=== PATIENT | male | born 1965 ===

== ENCOUNTER 2020-08-31 12:30 | Emergency (ER) | payer MEDICAID ==
--- NOTE | 2020-08-31 12:58 | Emergency Department Report ---
Blank Doc - Documentation Documentation: 55-year-old male that presents with SOB and increased abd distention. This initial assessment/diagnostic orders/clinical plan/treatment(s) is/are subject to change based on patient's health status, clinical progression and re- assessment by fellow clinical providers in the ED. Further treatment and workup at subsequent clinical providers discretion. Patient/guardians urged not to elope from the ED as their condition may be serious if not clinically assessed and managed. Initial orders include: 1- Patient sent to MAIN ED for further evaluation and treatment 2- labs 3- EKG
[2020-08-31 13:00] VITALS: BP 101/79
[2020-08-31 13:43] LABS: Basophils # (Auto) 0.1 K/mm3 (0.0-0.1); Basophils % (Auto) 0.4 % (0.0-1.8); Eosinophils % (Auto) 0.3 % (0.0-4.3); Hematocrit 28.8 % (35.5-45.6); Hemoglobin 9.5 gm/dl (11.8-15.2); Lymphocytes # (Auto) 1.9 K/mm3 (1.2-5.4); Lymphocytes % (Auto) 13.3 % (13.4-35.0); Mean Corpuscular HGB Conc 33 % (32-34); Mean Corpuscular Volume 98 fl (84-94); Monocytes # (Auto) 1.9 K/mm3 (0.0-0.8); Monocytes % (Auto) 13.5 % (0.0-7.3); Platelet Count 186 K/mm3 (140-440); Red Blood Count 2.95 M/mm3 (3.65-5.03); Red Cell Distribution Width 13.8 % (13.2-15.2)
[2020-08-31 13:51] LABS: INR 1.17 (0.87-1.13)
[2020-08-31 13:52] LABS: Partial Thromboplastin Time 31.7 Sec. (24.2-36.6)
[2020-08-31 14:18] LABS: Albumin 2.2 g/dL (3.9-5); Calcium 7.7 mg/dL (8.4-10.2)
[2020-08-31 14:30] LABS: Chol/HDL Ratio 2.96 %
--- NOTE | 2020-08-31 14:40 | XRay Report ---
CHEST 1 VIEW 08/31/2020 1:33 PM INDICATION / CLINICAL INFORMATION: Chest Pain. COMPARISON: None available. FINDINGS: SUPPORT DEVICES: A right internal jugular vein PermCath terminates over the right atrium. HEART / MEDIASTINUM: No significant abnormality. LUNGS / PLEURA: Clear lungs with reduced volumes. No significant pleural effusion. No pneumothorax. ADDITIONAL FINDINGS: No significant additional findings. IMPRESSION: 1. No acute abnormality of the chest. Signer Name: Curry Ascencio MD Signed: 08/31/2020 2:35 PM Workstation Name: [id number]
--- NOTE | 2020-08-31 15:39 | Emergency Department Report ---
ED Shortness of Breath HPI - General Chief Complaint: Medical Clearance Stated Complaint: RENAL FAILURE Time Seen by Provider: 08/31/20 12:56 Source: patient Mode of arrival: Ambulatory Limitations: No Limitations - History of Present Illness Initial Comments: 55-year-old male, history of ESRD, liver cirrhosis, presents to ED with shortness of breath. Patient states he was last dialyzed 2 days ago. He states after being dialyzed, he has had progressive distention of his abdomen. He reports shortness of breath due to his abdominal distention. Patient states he was seen by his PCP earlier today and advised to come to the ER. Patient states he needs paracentesis. States it was last performed approximately 1 week ago at [facility]. Complaint: shortness of breath -: days(s) (2) Severity: moderate Consistency: constant Improves With: nothing Worsens With: nothing Known History Of: other (ESRD) Treatments Prior to Arrival: none - Related Data Home Oxygen Therapy: No Home Medications Medication Instructions Recorded Confirmed Last Taken No Known Home Medications [No 08/08/20 08/08/20 Unknown Reported Home Medications] Allergies Allergy/AdvReac Type Severity Reaction Status Date / Time No Known Allergies Allergy Verified 05/01/16 10:24 ED Review of Systems ROS: Stated complaint: RENAL FAILURE Other details as noted in HPI Comment: All other systems reviewed and negative Constitutional: denies: chills, fever Respiratory: shortness of breath. denies: cough Gastrointestinal: other (Reports abdominal distention). denies: vomiting ED Past Medical Hx - Past Medical History Previous Medical History?: Yes Hx Hypertension: Yes Hx Liver Disease: Yes (cirrhosis) Hx Renal Disease: Yes - Surgical History Additional Surgical History: hernia repair - Social History Smoking Status: Current Every Day Smoker Substance Use Type: None - Medications Home Medications: Home Medications Medication Instructions Recorded Confirmed Last Taken Type No Known Home Medications [No 08/08/20 08/08/20 Unknown History Reported Home Medications] ED Physical Exam - General Limitations: No Limitations General appearance: alert, in no apparent distress - Head Head exam: Present: atraumatic, normocephalic - Eye Eye exam: Present: normal appearance, EOMI - ENT ENT exam: Present: mucous membranes moist - Neck Neck exam: Present: normal inspection - Respiratory Respiratory exam: Present: normal lung sounds bilaterally. Absent: respiratory distress - Cardiovascular Cardiovascular Exam: Present: normal rhythm, tachycardia - GI/Abdominal GI/Abdominal exam: Present: distended (Severely). Absent: tenderness - Extremities Exam Extremities exam: Present: normal inspection - Neurological Exam Neurological exam: Present: alert, oriented X3 - Psychiatric Psychiatric exam: Present: normal affect, normal mood - Skin Skin exam: Present: warm, dry, intact, normal color ED Course Vital Signs 08/31/20 12:56 Temperature 98 F Pulse Rate 105 H Respiratory 16 Rate Blood Pressure 101/79 [Right] O2 Sat by Pulse 100 Oximetry ED Medical Decision Making - Lab Data Result diagrams: 08/31/20 13:18 08/31/20 13:18 - Radiology Data Radiology results: report reviewed, image reviewed - Medical Decision Making Attempted to reach radiologist for paracentesis, however he has left for the day . Patient will be unable to get paracentesis today. He is in no respiratory distress. O2 sats are normal. He also does not meet criteria for emergent dialysis, as his potassium and chest x-ray are both normal. Patient is scheduled for dialysis in the morning. He states he normally gets paracentesis at [facility], who performs paracentesis on Monday, Monday, . Patient has been advised to follow-up in the morning for his usual dialysis. Afterward he can return here or go to [facility] for paracentesis. - Differential Diagnosis Hyperkalemia, pulmonary edema, ascites Critical care attestation.: If time is entered above; I have spent that time in minutes in the direct care of this critically ill patient, excluding procedure time. ED Disposition Clinical Impression: Abdominal ascites Disposition: DC-01 TO HOME OR SELFCARE Is pt being admited?: No Condition: Stable Instructions: Ascites (ED) Referrals: PRIMARY CARE [Primary Care Provider] - 09/01/20 Time of Disposition: 16:08
== END 2020-08-31 15:45 | disposition home or self-care (01) ==
LOC: ED 12:30
DX: R18.8 Other ascites (principal); I12.0 Hypertensive chronic kidney disease with stage 5 chronic kidney disease or end stage renal disease; N18.6 End stage renal disease; F17.200 Nicotine dependence, unspecified, uncomplicated; Z98.890 Other specified postprocedural states
CPT/HCPCS: 36415; 71045; 80053; 80061; 84484; 85025; 85610; 85730

== ENCOUNTER 2020-09-14 15:21 | Inpatient (IN) | payer MEDICAID ==
[2020-09-14] MEDS ORDERED: SODIUM CHLORIDE 0.9% 500 ML 500 ML IV ONE (17:09)
[2020-09-14 17:26] LABS: Basophils # (Auto) 0.5 K/mm3 (0.0-0.1); Basophils % (Auto) 2.6 % (0.0-1.8); Eosinophils % (Auto) 0.2 % (0.0-4.3); Hematocrit 26.3 % (35.5-45.6); Hemoglobin 8.4 gm/dl (11.8-15.2); Lymphocytes # (Auto) 2.2 K/mm3 (1.2-5.4); Lymphocytes % (Auto) 11.9 % (13.4-35.0); Mean Corpuscular HGB Conc 32 % (32-34); Mean Corpuscular Volume 101 fl (84-94); Monocytes # (Auto) 2.2 K/mm3 (0.0-0.8); Monocytes % (Auto) 11.6 % (0.0-7.3); Platelet Count 100 K/mm3 (140-440); Red Cell Distribution Width 15.2 % (13.2-15.2)
[2020-09-14 17:38] LABS: INR 1.55 (0.87-1.13)
[2020-09-14 17:39] LABS: Partial Thromboplastin Time 36.9 Sec. (24.2-36.6)
[2020-09-14] MEDS ORDERED: SODIUM CHLORIDE 0.9% 1000 ML IV SOLN IV ONE (17:42)
[2020-09-14] MEDS ORDERED: PIPERACIL/TAZOBACTA 4.5/NS 100 4.5 GM/100 ML VIAL IV ONE (17:48)
[2020-09-14] MEDS ORDERED: VANCOMYCIN 1,750 MG in SODIUM CHLORIDE 0.9% 500 ML 500 ML IV ONE (17:48)
--- NOTE | 2020-09-14 18:34 | XRay Report ---
XR chest 1V ap INDICATION / CLINICAL INFORMATION: leuckocytosis. COMPARISON: 08/31/2020 FINDINGS: Right IJ central venous catheter is stable. The lung volumes are markedly diminished with perihilar a nd bibasilar opacities, likely reflecting atelectasis. There is no focal airspace consolidation. No p leural effusion or pneumothorax. IMPRESSION: 1. Stable chest. Lung volumes without acute cardiopulmonary disease. Signer Name: Romel Cabrera MD Signed: 09/14/2020 6:29 PM Workstation Name: [id number]
[2020-09-14 19:23] LABS: Alanine Aminotransferase 20 units/L (7-56); Albumin 1.6 g/dL (3.9-5); BUN/Creatinine Ratio 6; Blood Urea Nitrogen 35 mg/dL (9-20); Calcium 7.1 mg/dL (8.4-10.2)
--- NOTE | 2020-09-14 19:32 | Emergency Department Report ---
ED General Adult HPI - General Chief complaint: Medical Clearance Stated complaint: HYPOTENSION Time Seen by Provider: 09/14/20 16:30 Source: EMS, old records reviewed Mode of arrival: Stretcher Limitations: No Limitations - History of Present Illness Initial comments: 55-year-old male with a past medical history of alcohol induced liver cirrhosis, and "violent outbursts" as per medical presents to the hospital from his primary care doctor's office with low blood pressure. Patient was initially belligerent and uncooperative with interview because he wanted yet another blanket because he was cold. I then returned to interview patient he was more cooperative. He states for the last 3 days he has had generalized body aches. He went to his primary care doctor for visit and was noted to have low blood pressure and was subsequently sent to the ER. He denies fever, cough cough or worsening abdominal pain. His chronic intermittent abdominal distention secondary to ascites requiring paracentesis. Last paracentesis was 1 week ago at [facility]. Patient states this is his second paracentesis in a 2-week. Patient states he recently missed 2 sessions of his Monday, , and Monday dialysis and had a "make-up session" yesterday. He was recently started on dialysis and has a right chest wall dialysis catheter. Patient's appraisal coordinator is Dr. Rincon and his GI doctor is Dr. Alvarez. He denies current alcohol abuse. Severity scale (0 -10): 10 - Related Data Home Medications Medication Instructions Recorded Confirmed Last Taken Cholecalciferol (Vitamin D3) 5,000 unit PO DAILY 09/14/20 09/14/20 Unknown [Vitamin D3] Folic Acid [Folvite] 1 mg PO QDAY 09/14/20 09/14/20 Unknown Furosemide [Lasix TAB] 40 mg PO QDAY 09/14/20 09/14/20 Unknown Lactulose [Kristalose] 20 gm PO QDAY 09/14/20 09/14/20 Unknown Midodrine [Proamatine] 5 mg PO TID 09/14/20 09/14/20 Unknown Pantoprazole [Protonix] 40 mg PO QDAY 09/14/20 09/14/20 Unknown Rifaximin [Xifaxan] 550 mg PO BID 09/14/20 09/14/20 Unknown Spironolactone [Aldactone] 100 mg PO BID 09/14/20 09/14/20 Unknown Thiamine [Vitamin B-1] 100 mg PO QDAY 09/14/20 09/14/20 Unknown megestroL [Megace] 20 mg PO QID 09/14/20 09/14/20 Unknown Allergies Allergy/AdvReac Type Severity Reaction Status Date / Time No Known Allergies Allergy Verified 05/01/16 10:24 ED Review of Systems ROS: Stated complaint: HYPOTENSION Other details as noted in HPI Comment: All other systems reviewed and negative ED Past Medical Hx - Past Medical History Previous Medical History?: Yes Hx Hypertension: Yes Hx Liver Disease: Yes (cirrhosis, ascites) Hx Renal Disease: Yes Additional medical history: Recent hemodialysis Tue, Th, Sat - Surgical History Additional Surgical History: hernia repair - Social History Smoking Status: Unknown if ever smoked - Medications Home Medications: Home Medications Medication Instructions Recorded Confirmed Last Taken Type Cholecalciferol (Vitamin D3) 5,000 unit PO DAILY 09/14/20 09/14/20 Unknown History [Vitamin D3] Folic Acid [Folvite] 1 mg PO QDAY 09/14/20 09/14/20 Unknown History Furosemide [Lasix TAB] 40 mg PO QDAY 09/14/20 09/14/20 Unknown History Lactulose [Kristalose] 20 gm PO QDAY 09/14/20 09/14/20 Unknown History Midodrine [Proamatine] 5 mg PO TID 09/14/20 09/14/20 Unknown History Pantoprazole [Protonix] 40 mg PO QDAY 09/14/20 09/14/20 Unknown History Rifaximin [Xifaxan] 550 mg PO BID 09/14/20 09/14/20 Unknown History Spironolactone [Aldactone] 100 mg PO BID 09/14/20 09/14/20 Unknown History Thiamine [Vitamin B-1] 100 mg PO QDAY 09/14/20 09/14/20 Unknown History megestroL [Megace] 20 mg PO QID 09/14/20 09/14/20 Unknown History ED Physical Exam - General Limitations: No Limitations - Other Other exam information: General: No acute distress Head: Atraumatic Eyes: normal appearance ENT: Moist mucous membranes Neck: Normal appearance, no midline tenderness Chest: Clear to auscultation bilaterally CV: Regular rate and rhythm Abdomen: Soft, normal bowel sounds, abdominal distended with presumed ascites but nontender. No rebound or guarding Back: Normal inspection Extremity: Normal inspection, full range of motion Neuro: Alert O x 3, no facial asymmetry, speech clear, no gross motor sensory deficit Psych: Intermittently belligerent Skin: No rash ED Course Vital Signs 09/14/20 09/14/20 09/14/20 16:35 16:36 18:32 Temperature 98.3 F Pulse Rate 79 80 Respiratory 18 18 16 Rate Blood Pressure 84/54 93/60 [Left] O2 Sat by Pulse 100 100 98 Oximetry - Consultations Consultation #1: 09/14/20 19: 30 Case has been discussed with both Dr. Funez with GI as well as Dr. Johnston nephrology and they will consult during admission ED Medical Decision Making - Lab Data Result diagrams: 09/14/20 16:41 09/14/20 16:41 Lab Results 09/14/20 09/14/20 09/14/20 Range/Units 16:41 16:41 16:55 WBC 18.8 H (4.5-11.0) K/mm3 RBC 2.60 L (3.65-5.03) M/mm3 Hgb 8.4 L (11.8-15.2) gm/dl Hct 26.3 L (35.5-45.6) % MCV 101 H (84-94) fl MCH 32 (28-32) pg MCHC 32 (32-34) % RDW 15.2 (13.2-15.2) % Plt Count 100 L (140-440) K/mm3 Lymph % (Auto) 11.9 L (13.4-35.0) % [place] % (Auto) 11.6 H (0.0-7.3) % Eos % (Auto) 0.2 (0.0-4.3) % Baso % (Auto) 2.6 H (0.0-1.8) % Lymph # (Auto) 2.2 (1.2-5.4) K/mm3 [place] # (Auto) 2.2 H (0.0-0.8) K/mm3 Eos # (Auto) 0.0 (0.0-0.4) K/mm3 Baso # (Auto) 0.5 H (0.0-0.1) K/mm3 Seg Neutrophils % 73.7 H (40.0-70.0) % Seg Neutrophils # 13.9 H (1.8-7.7) K/mm3 PT (12.2-14.9) Sec. INR (0.87-1.13) APTT (24.2-36.6) Sec. Sodium 128 L (137-145) mmol/L Potassium 4.8 (3.6-5.0) mmol/L Chloride 88.6 L (98-107) mmol/L Carbon Dioxide 25 (22-30) mmol/L Anion Gap 19 mmol/L BUN 35 H (9-20) mg/dL Creatinine 5.5 H (0.8-1.3) mg/dL Estimated GFR 11 ml/min BUN/Creatinine Ratio 6 % Glucose 103 H (75-100) mg/dL Lactic Acid (0.7-2.0) mmol/L Calcium 7.1 L (8.4-10.2) mg/dL Magnesium 2.40 H (1.7-2.3) mg/dL Total Bilirubin 1.80 H (0.1-1.2) mg/dL AST 48 H (5-40) units/L ALT 20 (7-56) units/L Alkaline Phosphatase 144 H (35-129) units/L Total Protein 4.0 L (6.3-8.2) g/dL Albumin 1.6 L (3.9-5) g/dL Albumin/Globulin Ratio 0.7 % Plasma/Serum Alcohol (0-0.07) % 09/14/20 09/14/20 09/14/20 Range/Units 16:55 16:55 18:15 WBC (4.5-11.0) K/mm3 RBC (3.65-5.03) M/mm3 Hgb (11.8-15.2) gm/dl Hct (35.5-45.6) % MCV (84-94) fl MCH (28-32) pg MCHC (32-34) % RDW (13.2-15.2) % Plt Count (140-440) K/mm3 Lymph % (Auto) (13.4-35.0) % [place] % (Auto) (0.0-7.3) % Eos % (Auto) (0.0-4.3) % Baso % (Auto) (0.0-1.8) % Lymph # (Auto) (1.2-5.4) K/mm3 [place] # (Auto) (0.0-0.8) K/mm3 Eos # (Auto) (0.0-0.4) K/mm3 Baso # (Auto) (0.0-0.1) K/mm3 Seg Neutrophils % (40.0-70.0) % Seg Neutrophils # (1.8-7.7) K/mm3 PT 18.8 H (12.2-14.9) Sec. INR 1.55 H (0.87-1.13) APTT 36.9 H (24.2-36.6) Sec. Sodium (137-145) mmol/L Potassium (3.6-5.0) mmol/L Chloride (98-107) mmol/L Carbon Dioxide (22-30) mmol/L Anion Gap mmol/L BUN (9-20) mg/dL Creatinine (0.8-1.3) mg/dL Estimated GFR ml/min BUN/Creatinine Ratio % Glucose (75-100) mg/dL Lactic Acid 2.70 H* (0.7-2.0) mmol/L Calcium (8.4-10.2) mg/dL Magnesium (1.7-2.3) mg/dL Total Bilirubin (0.1-1.2) mg/dL AST (5-40) units/L ALT (7-56) units/L Alkaline Phosphatase (35-129) units/L Total Protein (6.3-8.2) g/dL Albumin (3.9-5) g/dL Albumin/Globulin Ratio % Plasma/Serum Alcohol < 0.01 (0-0.07) % - Radiology Data Radiology results: report reviewed XR chest 1V ap INDICATION / CLINICAL INFORMATION: leuckocytosis. COMPARISON: 08/31/2020 FINDINGS: Right IJ central venous catheter is stable. The lung volumes are markedly diminished with perihilar and bibasilar opacities, likely reflecting atelectasis. There is no focal airspace consolidation. No pleural effusion or pneumothorax. IMPRESSION: 1. Stable chest. Lung volumes without acute cardiopulmonary disease. - Medical Decision Making 55-year-old male with alcohol induced ascites presents to the hospital leukocytosis and borderline low blood pressure. Patient's map upon repeat blood pressure checks remained above 65. Patient treated via sepsis protocol with 30 mL/kg bolus of normal saline and was empirically treated with vancomycin and Zosyn. Source of infection unknown at this time. Blood cultures pending. Case was discussed with GI doctor premium cancellation clerk regarding due to chronic liver failure/ascites and case was discussed with Dr. Johnston appraisal coordinator for management of dialysis. Hospitalist informed for admission Critical Care Time: No Critical care attestation.: If time is entered above; I have spent that time in minutes in the direct care of this critically ill patient, excluding procedure time. ED Disposition Clinical Impression: Sepsis, Cirrhosis of liver with ascites, ESRD (end stage renal disease) on dialysis Disposition: OP ADMIT IP TO THIS HOSP Is pt being admited?: Yes Condition: Stable Time of Disposition: 20:30 (Dr. Catalan/hospitalist)
--- NOTE | 2020-09-14 20:26 | History and Physical Report ---
History of Present Illness Chief complaint: I dont feel well at all, and my doctor sent me here History of present illness: 55 YO Male with Cirrhosis, ESRD on HD(T,R,Sa), ETOH Dependence, Nicotine Dependence, HTN presents to ED for evaluation. Patient states that he has been "feeling sick" over the past 3 days. Patient knowledges generalized body aches, fatigue, subjective fever. Patient was seen and evaluated by his primary care physician today and was found to be hypotensive. Patient was instructed to seek further care. EMS was notified and upon arrival the patient was found to be in distress and subsequently transported to [facility] for further care and evaluation of the aforementioned symptoms. Patient seen and evaluated in the emergency department. All lab and imaging studies reviewed. Patient found to have sepsis with a systolic blood pressure in the 80swithout taking antihypertensive medication, end-stage renal disease, hyponatremia. Patient initiated on sepsis protocol and admitted to [facility]. Patient knowledges subjective fever but denies chills, chest pain, palpitation, productive cough, skin rash, recent ill contacts, or known exposure to COVID-19. Prior admission on 08/07/2020 reviewed. All medication listed at time of admission has been reconciled. Nephrology team consulted in ED. Past History Past Medical History: ESRD, hypertension, other (See HPI) Past Surgical History: Other (Dialysis access) Social history: smoking, alcohol abuse Medications and Allergies Allergies Allergy/AdvReac Type Severity Reaction Status Date / Time No Known Allergies Allergy Verified 05/01/16 10:24 Home Medications Medication Instructions Recorded Confirmed Last Taken Type Cholecalciferol (Vitamin D3) 5,000 unit PO DAILY 09/14/20 09/14/20 Unknown History [Vitamin D3] Folic Acid [Folvite] 1 mg PO QDAY 09/14/20 09/14/20 Unknown History Furosemide [Lasix TAB] 40 mg PO QDAY 09/14/20 09/14/20 Unknown History Lactulose [Kristalose] 20 gm PO QDAY 09/14/20 09/14/20 Unknown History Midodrine [Proamatine] 5 mg PO TID 09/14/20 09/14/20 Unknown History Pantoprazole [Protonix] 40 mg PO QDAY 09/14/20 09/14/20 Unknown History Rifaximin [Xifaxan] 550 mg PO BID 09/14/20 09/14/20 Unknown History Spironolactone [Aldactone] 100 mg PO BID 09/14/20 09/14/20 Unknown History Thiamine [Vitamin B-1] 100 mg PO QDAY 09/14/20 09/14/20 Unknown History megestroL [Megace] 20 mg PO QID 09/14/20 09/14/20 Unknown History Review of Systems Constitutional: fever, chills, fatigue, weakness Ears, nose, mouth and throat: no ear pain, no ear discharge, no tinnitis, no decreased hearing Cardiovascular: no chest pain, no orthopnea, no palpitations, no rapid/irregular heart beat, no edema, no syncope Respiratory: no cough, no excessive sputum, no hemoptysis Gastrointestinal: no abdominal pain, no nausea, no vomiting, no diarrhea Genitourinary Male: no hematuria, no flank pain, no discharge, no urinary frequency, no urinary hesitancy Rectal: no pain, no incontinence, no bleeding Musculoskeletal: no neck stiffness, no neck pain, no shooting arm pain, no arm numbness/tingling, no low back pain Integumentary: no rash, no pruritis, no redness, no sores, no wounds Neurological: no head injury, no transient paralysis, no paralysis, no parathesi as, no numbness, no tingling Psychiatric: no anxiety, no memory loss, no sleep disturbances, no insomnia Endocrine: no cold intolerance, no heat intolerance, no polyphagia, no polydipsia, no nocturia Hematologic/Lymphatic: no easy bruising, no easy bleeding Allergic/Immunologic: no urticaria, no allergic rhinitis Exam - Constitutional Vitals: Temp Pulse Resp BP Pulse Ox 98.3 F 80 16 93/60 98 09/14/20 16:35 09/14/20 18:32 09/14/20 18:32 09/14/20 18:32 09/14/20 18:32 General appearance: Present: mild distress - EENT Eyes: Present: PERRL ENT: hearing intact, clear oral mucosa - Neck Neck: Present: supple, normal ROM - Respiratory Respiratory effort: normal Respiratory: bilateral: CTA - Cardiovascular Rhythm: other (Tachycardia) Heart Sounds: Present: S1 & S2. Absent: rub, click - Extremities Extremities: pulses symmetrical, No edema Peripheral Pulses: abnormal (Capillary refill greater than 3.5 seconds) - Abdominal General gastrointestinal: Present: soft, non-tender, non-distended, normal bowel sounds Male genitourinary: Present: normal - Integumentary Integumentary: Present: clear, warm, dry - Musculoskeletal Musculoskeletal: gait normal, strength equal bilaterally - Psychiatric Psychiatric: appropriate mood/affect, intact judgment & insight - Neurologic Neurologic: CNII-XII intact, moves all extremities Results - Labs CBC & Chem 7: 09/14/20 16:41 09/14/20 16:41 Labs: Abnormal lab results 09/14/20 09/14/20 09/14/20 Range/Units 16:41 16:41 16:55 WBC 18.8 H (4.5-11.0) K/mm3 RBC 2.60 L (3.65-5.03) M/mm3 Hgb 8.4 L (11.8-15.2) gm/dl Hct 26.3 L (35.5-45.6) % MCV 101 H (84-94) fl Plt Count 100 L (140-440) K/mm3 Lymph % (Auto) 11.9 L (13.4-35.0) % [place] % (Auto) 11.6 H (0.0-7.3) % Baso % (Auto) 2.6 H (0.0-1.8) % [place] # (Auto) 2.2 H (0.0-0.8) K/mm3 Baso # (Auto) 0.5 H (0.0-0.1) K/mm3 Seg Neutrophils % 73.7 H (40.0-70.0) % Seg Neutrophils # 13.9 H (1.8-7.7) K/mm3 PT (12.2-14.9) Sec. INR (0.87-1.13) APTT (24.2-36.6) Sec. Sodium 128 L (137-145) mmol/L Chloride 88.6 L (98-107) mmol/L BUN 35 H (9-20) mg/dL Creatinine 5.5 H (0.8-1.3) mg/dL Glucose 103 H (75-100) mg/dL Lactic Acid (0.7-2.0) mmol/L Calcium 7.1 L (8.4-10.2) mg/dL Magnesium 2.40 H (1.7-2.3) mg/dL Total Bilirubin 1.80 H (0.1-1.2) mg/dL AST 48 H (5-40) units/L Alkaline Phosphatase 144 H (35-129) units/L Total Protein 4.0 L (6.3-8.2) g/dL Albumin 1.6 L (3.9-5) g/dL 09/14/20 09/14/20 Range/Units 16:55 18:15 WBC (4.5-11.0) K/mm3 RBC (3.65-5.03) M/mm3 Hgb (11.8-15.2) gm/dl Hct (35.5-45.6) % MCV (84-94) fl Plt Count (140-440) K/mm3 Lymph % (Auto) (13.4-35.0) % [place] % (Auto) (0.0-7.3) % Baso % (Auto) (0.0-1.8) % [place] # (Auto) (0.0-0.8) K/mm3 Baso # (Auto) (0.0-0.1) K/mm3 Seg Neutrophils % (40.0-70.0) % Seg Neutrophils # (1.8-7.7) K/mm3 PT 18.8 H (12.2-14.9) Sec. INR 1.55 H (0.87-1.13) APTT 36.9 H (24.2-36.6) Sec. Sodium (137-145) mmol/L Chloride (98-107) mmol/L BUN (9-20) mg/dL Creatinine (0.8-1.3) mg/dL Glucose (75-100) mg/dL Lactic Acid 2.70 H* (0.7-2.0) mmol/L Calcium (8.4-10.2) mg/dL Magnesium (1.7-2.3) mg/dL Total Bilirubin (0.1-1.2) mg/dL AST (5-40) units/L Alkaline Phosphatase (35-129) units/L Total Protein (6.3-8.2) g/dL Albumin (3.9-5) g/dL Assessment and Plan - Patient Problems (1) Sepsis Status: Acute Plan to address problem: Sepsis protocol: CBC, CMP, chest x-ray, urinalysis, IV antibiotic therapy, serial lactic acid level, blood culture, maintain mean arterial blood pressure greater than or equal to 65. (2) End stage renal disease Status: Acute Plan to address problem: Strict I/O, monitor urine output every shift, avoid nephrotoxic agents, dialysis as per renal team. (3) Hypertension Status: Acute Qualifiers: Hypertension type: essential hypertension Qualified Code(s): I10 - Essential (primary) hypertension Plan to address problem: Monitor blood pressure every shift, continue medical management. Patient is hypotensive at this time hold antihypertensive therapy for systolic blood pressure less than 120 mmHg (4) Nicotine dependence Status: Acute Qualifiers: Nicotine product type: cigarettes Substance use status: in withdrawal Qualified Code(s): F17.213 - Nicotine dependence, cigarettes, with withdrawal Plan to address problem: Smoking cessation counseling, supportive care, behavior change counseling, +15 minutes (5) Alcohol dependence Status: Acute Plan to address problem: Thiamine, folic acid, multivitamin, supportive care, (6) DVT prophylaxis Status: Acute Plan to address problem: SCD to bilateral extremities while in bed, patient is ambulatory
[2020-09-14] MEDS ORDERED: HYDROmorphone 1 MG/1 ML INJ IV PRN (20:30)
[2020-09-14] MEDS ORDERED: ACETAMINOPHEN 325 MG TAB PO PRN (20:30)
[2020-09-14] MEDS ORDERED: SPIRONOLACTONE 100 MG PO SCH (22:00)
[2020-09-14] MEDS ORDERED: MEGESTROL 20 MG TAB PO SCH (22:00)
[2020-09-14] MEDS ORDERED: levoFLOXacin 500 MG TAB PO SCH (22:00)
[2020-09-14] MEDS ORDERED: ACETAMINOPHEN 325 MG TAB ONE (22:57)
[2020-09-14] MEDS ORDERED: levoFLOXacin 500 MG TAB ONE (22:57)
[2020-09-14] MEDS ORDERED: KETOROLAC 30 MG/1 ML INJ IV ONE (23:18)
[2020-09-14] MEDS ORDERED: SODIUM CHLORIDE 0.9% 250ML 250 ML IV ONE (23:18)
[2020-09-14] MEDS ORDERED: KETOROLAC 30 MG/1 ML INJ ONE (23:22)
[2020-09-14] MEDS ORDERED: SODIUM CHLORIDE 0.9% 250ML 250 ML ONE (23:22)
[2020-09-14] MEDS: SPIRONOLACTONE 50 MG TAB PO SCH (23:33)
[2020-09-14] MEDS: RIFAXIMIN 550 MG TAB PO SCH (23:35)
[2020-09-15] MEDS ORDERED: MIDODRINE 5 MG TAB PO SCH (08:00)
--- NOTE | 2020-09-15 09:00 | Gastroenterology Consultation ---
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 Alvarez), ESRD on HD, HTN admitted for possible sepsis. Patient reports feeling sick over the past few days. Just had paracentesis with 10 [place] [facility] [place] Feels like fluids have build back up and also reports having LE edema. He has subjective fever, abdominal distension, LE swelling. No nausea/vomiting or blood in the stools. Patient has been started on empiric antibiotics. medication list reviewed. Past History Past Medical History: ESRD, hypertension, other (See HPI) Past Surgical History: Other (Dialysis access) Social history: smoking, alcohol abuse Medications and Allergies Allergies Allergy/AdvReac Type Severity Reaction Status Date / Time No Known Allergies Allergy Verified 05/01/16 10:24 Home Medications Medication Instructions Recorded Confirmed Last Taken Type Cholecalciferol (Vitamin D3) 5,000 unit PO DAILY 09/14/20 09/14/20 Unknown History [Vitamin D3] Folic Acid [Folvite] 1 mg PO QDAY 09/14/20 09/14/20 Unknown History Furosemide [Lasix TAB] 40 mg PO QDAY 09/14/20 09/14/20 Unknown History Lactulose [Kristalose] 20 gm PO QDAY 09/14/20 09/14/20 Unknown History Midodrine [Proamatine] 5 mg PO TID 09/14/20 09/14/20 Unknown History Pantoprazole [Protonix] 40 mg PO QDAY 09/14/20 09/14/20 Unknown History Rifaximin [Xifaxan] 550 mg PO BID 09/14/20 09/14/20 Unknown History Spironolactone [Aldactone] 100 mg PO BID 09/14/20 09/14/20 Unknown History Thiamine [Vitamin B-1] 100 mg PO QDAY 09/14/20 09/14/20 Unknown History megestroL [Megace] 20 mg PO QID 09/14/20 09/14/20 Unknown History Nicotine Polacrilex [Nicotine Gum] 4 mg PO PRN PRN 09/15/20 09/15/20 09/15/20 History Nicotine [Habitrol] 21 mg TP QDAY 09/15/20 09/15/20 09/14/20 History Active Meds: Active Medications Cholecalciferol (Vitamin D3) 5,000 unit PO DAILY [facility] Folic Acid (Folvite) 1 mg PO QDAY [facility] Furosemide (Lasix) 40 mg PO QDAY [facility] Hydromorphone HCl (Dilaudid) 0.25 mg IV Q4H PRN PRN Reason: Pain, Moderate (4-6) Last Admin: 09/15/20 04:15 Dose: 0.25 mg Documented by: Lactulose (Cephulac) 20 gm PO QDAY [facility] Levofloxacin (Levaquin) 500 mg PO Q48H [facility]; Protocol Last Admin: 09/14/20 23:32 Dose: 500 mg Documented by: Megestrol Acetate (Megestrol) 20 mg PO QID [facility] Midodrine (Proamatine) 5 mg PO TID [facility] Pantoprazole Sodium (Protonix) 40 mg PO QDAY [facility] Pneumococcal Polyvalent Vaccine (Pneumovax 23) 0.5 ml IM .ONCE ONE Stop: 09/15/20 12:01 Rifaximin (Xifaxan) 550 mg PO BID [facility] Last Admin: 09/14/20 23:35 Dose: 550 mg Documented by: Sodium Chloride (Sodium Chloride Flush Syringe 10 Ml) 10 ml IV BID [facility] Last Admin: 09/14/20 23:46 Dose: 10 ml Documented by: Sodium Chloride (Sodium Chloride Flush Syringe 10 Ml) 10 ml IV PRN PRN PRN Reason: LINE FLUSH Spironolactone (Aldactone) 100 mg PO BID [facility] Last Admin: 09/14/20 23:33 Dose: Not Given Documented by: Thiamine HCl (Vitamin B-1) 100 mg PO QDAY [facility] Review of Systems - Review of Systems All systems: negative Constitutional: weight loss, fever Cardiovascular: chest pain, no palpitations Gastrointestinal: abdominal pain, nausea, vomiting, constipation, no diarrhea, no hematemesis, no coffee ground emesis Neurological: weakness Psychiatric: anxiety Hematologic/Lymphatic: easy bruising Exam - Constitutional Vital Signs: Temp Pulse Resp BP Pulse Ox 98.9 F 91 H 16 82/57 100 09/15/20 02:10 09/15/20 07:00 09/15/20 05:16 09/15/20 07:00 11/17/20 06:46 General appearance: no acute distress - EENT Eyes: EOM intact ENT: hearing intact - Cardiovascular Rhythm: regular Heart Sounds: Present: S1 & S2 - Gastrointestinal General gastrointestinal: Present: soft, non-tender, distended - Integumentary Integumentary: Present: clear, warm - Neurologic Neurological: alert and oriented x3 - Labs CBC & Chem 7: 09/15/20 08:57 09/15/20 08:57 Lab Results: Laboratory Results - last 24 hr 09/14/20 09/14/20 09/14/20 16:41 16:41 16:55 WBC 18.8 H RBC 2.60 L Hgb 8.4 L Hct 26.3 L MCV 101 H MCH 32 MCHC 32 RDW 15.2 Plt Count 100 L Lymph % (Auto) 11.9 L Sa[place] % (Auto) 11.6 H Eos % (Auto) 0.2 Baso % (Auto) 2.6 H Lymph # (Auto) 2.2 [place] # (Auto) 2.2 H Eos # (Auto) 0.0 Baso # (Auto) 0.5 H Seg Neutrophils % 73.7 H Seg Neutrophils # 13.9 H PT INR APTT Sodium 128 L Potassium 4.8 Chloride 88.6 L Carbon Dioxide 25 Anion Gap 19 BUN 35 H Creatinine 5.5 H Estimated GFR 11 BUN/Creatinine Ratio 6 Glucose 103 H Lactic Acid Calcium 7.1 L Magnesium 2.40 H Total Bilirubin 1.80 H AST 48 H ALT 20 Alkaline Phosphatase 144 H Total Protein 4.0 L Albumin 1.6 L Albumin/Globulin Ratio 0.7 Plasma/Serum Alcohol 09/14/20 09/14/20 09/14/20 16:55 16:55 18:15 WBC RBC Hgb Hct MCV MCH MCHC RDW Plt Count Lymph % (Auto) Saunders % (Auto) Eos % (Auto) Baso % (Auto) Lymph # (Auto) Saunders # (Auto) Eos # (Auto) Baso # (Auto) Seg Neutrophils % Seg Neutrophils # PT 18.8 H INR 1.55 H APTT 36.9 H Sodium Potassium Chloride Carbon Dioxide Anion Gap BUN Creatinine Estimated GFR BUN/Creatinine Ratio Glucose Lactic Acid 2.70 H* Calcium Magnesium Total Bilirubin AST ALT Alkaline Phosphatase Total Protein Albumin Albumin/Globulin Ratio Plasma/Serum Alcohol < 0.01 Assessment and Plan - Patient Problems (1) Cirrhosis of liver with ascites Current Visit: No Status: Acute Plan to address problem: - cirrhosis 2/2 alcohol use. last alcohol use 2 weeks ago per patient but minimal. - ascites on exam. last paracentesis 10 lit[place] [facility] [place]. - no signs of HE on exam. - on levaquin empirically Rec - ordered US guided paracentesis. Ascitic fluid labs ordered. - cont with empiric antibiotics, on levaquin currently. - start rifaximin and lactulose. - will follow.
[2020-09-15] MEDS: SPIRONOLACTONE 50 MG TAB PO SCH ×2 (09:06→22:41)
[2020-09-15] MEDS: LACTULOSE 20 GM/30 ML ORAL LIQD PO SCH ×2 (09:06→09:17)
[2020-09-15] MEDS: FOLIC ACID 1 MG TAB PO SCH (09:07)
[2020-09-15] MEDS: MEGESTROL 40 MG TAB PO SCH ×4 (09:07→22:40)
[2020-09-15] MEDS: RIFAXIMIN 550 MG TAB PO SCH ×2 (09:07→22:41)
[2020-09-15] MEDS: THIAMINE 100 MG TAB PO SCH (09:07)
[2020-09-15] MEDS: FUROSEMIDE 40 MG TAB PO SCH (09:11)
[2020-09-15 09:27] LABS: Basophils # (Auto) 0.1 K/mm3 (0.0-0.1); Basophils % (Auto) 0.7 % (0.0-1.8); Eosinophils % (Auto) 0.2 % (0.0-4.3); Hemoglobin 8.8 gm/dl (11.8-15.2); Lymphocytes # (Auto) 1.8 K/mm3 (1.2-5.4); Mean Corpuscular HGB Conc 34 % (32-34); Mean Corpuscular Volume 97 fl (84-94); Monocytes # (Auto) 1.6 K/mm3 (0.0-0.8); Monocytes % (Auto) 10.4 % (0.0-7.3); Red Blood Count 2.67 M/mm3 (3.65-5.03); Red Cell Distribution Width 15.5 % (13.2-15.2)
[2020-09-15 09:47] LABS: Albumin 1.4 g/dL (3.9-5); Calcium 7.1 mg/dL (8.4-10.2)
[2020-09-15] MEDS: CHOLECALCIFEROL (VIT D3) 5,000 UNIT TAB PO SCH (09:47)
[2020-09-15] MEDS ORDERED: PANTOPRAZOLE 40 MG TAB PO SCH (10:00)
[2020-09-15] MEDS ORDERED: LACTULOSE 20 GM PO SCH (10:00)
[2020-09-15 10:01] LABS: Platelet Count 95 K/mm3 (140-440)
[2020-09-15] MEDS ORDERED: SODIUM CHLORIDE 0.9% 100 ML IV PRN (11:34)
[2020-09-15] MEDS ORDERED: EPOETIN ALFA 10,000 UNIT/1 ML INJ IV PRN (11:34)
[2020-09-15] MEDS ORDERED: HEPARIN 10,000 UNIT/1 ML VIAL IV PRN (11:34)
--- NOTE | 2020-09-15 11:34 | Consultation ---
History of Present Illness - Reason for Consult Consult date: 09/15/20 end stage renal disease Requesting physician: ASPEN FARIAS - History of Present Illness 55-year-old male who is known to me with a history of alcoholic liver disease and end-stage renal disease who recently started dialysis. Patient dialyzes on a Monday schedule at [facility]. Patient has had difficulty staying for his treatments because is only able to tolerate sitting on the dialysis chairs. He wants to transfer to a clinic that has beds. Request has been made but patient has not been accepted at any facility so far. Unfortunately has missed some dialysis treatment because of this problem. Patient went to see his primary care physician was noted to be hypotensive and sent to the emergency room for evaluation. Of note his blood pressure ranges between 80s to 90s systolic. Dialysis despite being on midodrine. Patient is usually asymptomatic. In the ER, patient was belligerent and uncooperative with interactions on. ER physician Ari saw patient that he was cold. After being given blankets he became bit more calm. I am consulted to assist with managing his renal failure. Patient is not very cooperative with exam and so history is somewhat limited. 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 denies: prescription drug abuse, IV drug use Family history: cancer (Mother), diabetes (Father), hypertension (Father) Medications and Allergies Allergies Allergy/AdvReac Type Severity Reaction Status Date / Time No Known Allergies Allergy Verified 05/01/16 10:24 Home Medications Medication Instructions Recorded Confirmed Last Taken Type Cholecalciferol (Vitamin D3) 5,000 unit PO DAILY 09/14/20 09/14/20 Unknown History [Vitamin D3] Folic Acid [Folvite] 1 mg PO QDAY 09/14/20 09/14/20 Unknown History Furosemide [Lasix TAB] 40 mg PO QDAY 09/14/20 09/14/20 Unknown History Lactulose [Kristalose] 20 gm PO QDAY 09/14/20 09/14/20 Unknown History Midodrine [Proamatine] 5 mg PO TID 09/14/20 09/14/20 Unknown History Pantoprazole [Protonix] 40 mg PO QDAY 09/14/20 09/14/20 Unknown History Rifaximin [Xifaxan] 550 mg PO BID 09/14/20 09/14/20 Unknown History Spironolactone [Aldactone] 100 mg PO BID 09/14/20 09/14/20 Unknown History Thiamine [Vitamin B-1] 100 mg PO QDAY 09/14/20 09/14/20 Unknown History megestroL [Megace] 20 mg PO QID 09/14/20 09/14/20 Unknown History Nicotine Polacrilex [Nicotine Gum] 4 mg PO PRN PRN 09/15/20 09/15/20 09/15/20 History Nicotine [Habitrol] 21 mg TP QDAY 09/15/20 09/15/20 09/14/20 History Active Meds: Active Medications Cholecalciferol (Vitamin D3) 5,000 unit PO DAILY [facility] Last Admin: 09/15/20 09:47 Dose: 5,000 unit Documented by: Folic Acid (Folvite) 1 mg PO QDAY [facility] Last Admin: 09/15/20 09:07 Dose: 1 mg Documented by: Furosemide (Lasix) 40 mg PO QDAY [facility] Last Admin: 09/15/20 09:11 Dose: 40 mg Documented by: Hydromorphone HCl (Dilaudid) 0.25 mg IV Q4H PRN PRN Reason: Pain, Moderate (4-6) Last Admin: 09/15/20 04:15 Dose: 0.25 mg Documented by: Lactulose (Cephulac) 20 gm PO QDAY [facility] Last Admin: 09/15/20 09:17 Dose: Not Given Documented by: Levofloxacin (Levaquin) 500 mg PO Q48H [facility]; Protocol Last Admin: 09/14/20 23:32 Dose: 500 mg Documented by: Megestrol Acetate (Megestrol) 20 mg PO QID [facility] Last Admin: 09/15/20 09:07 Dose: 20 mg Documented by: Midodrine (Proamatine) 5 mg PO TID [facility] Last Admin: 09/15/20 08:55 Dose: 5 mg Documented by: Pantoprazole Sodium (Protonix) 40 mg PO QDAY [facility] Last Admin: 09/15/20 09:07 Dose: 40 mg Documented by: Pneumococcal Polyvalent Vaccine (Pneumovax 23) 0.5 ml IM .ONCE ONE Stop: 09/15/20 12:01 Rifaximin (Xifaxan) 550 mg PO BID [facility] Last Admin: 09/15/20 09:07 Dose: 550 mg Documented by: Sodium Chloride (Sodium Chloride Flush Syringe 10 Ml) 10 ml IV BID [facility] Last Admin: 09/15/20 09:11 Dose: 10 ml Documented by: Sodium Chloride (Sodium Chloride Flush Syringe 10 Ml) 10 ml IV PRN PRN PRN Reason: LINE FLUSH Spironolactone (Aldactone) 100 mg PO BID [facility] Last Admin: 09/15/20 09:06 Dose: 100 mg Documented by: Thiamine HCl (Vitamin B-1) 100 mg PO QDAY [facility] Last Admin: 09/15/20 09:07 Dose: 100 mg Documented by: Review of Systems All systems: negative (As noted in history of present illness. Patient is not very cooperative.) Exam - Vital Signs Vital signs: Vital Signs Temp Pulse Resp BP Pulse Ox 98.3 F 79 18 84/54 100 09/14/20 16:35 09/14/20 16:35 09/14/20 16:35 09/14/20 16:35 09/14/20 16:35 - Physical Exam Narrative exam: Middle-aged -Dominican male lying in bed in no acute distress HEENT: NCAT, pink oral mucous membrane Neck: Supple, no venous distention CVS: S1S2 RRR with no murmur, rub or gallop Chest: Clear to auscultation but diminished in lower zones bilaterally Abdomen: Distended, soft, nontender, no organomegaly, bowel sounds are present Extremities: 1-2+ pitting edema genitourinary deferred Neuro: Awake, alert no focal deficits Results - Lab Results 09/16/20 06:42 09/16/20 06:42 Most recent lab results Calcium 7.1 mg/dL (8.4-10.2) L 09/15/20 08:57 Magnesium 2.40 mg/dL (1.7-2.3) H 09/14/20 16:55 Assessment and Plan #1 hyponatremia 2. Hyperkalemia. 3. Alcoholic liver disease with ascites. 4. Hypotension, leukocytosis rule out sepsis 5. Anemia with thrombocytopenia 6. End-stage renal disease on hemodialysis Recommendations: Follow-up cultures 2. Hemodialysis today for fluid removal and solute clearance. 3. Give midodrine before dialysis. 4. Give erythropoietin on dialysis 5. For paracentesis per primary attending Further management depending on the above. I wish to thank Dr. Coburn for consu lting me. It is a pleasure to be involved in Patient care with you. I will follow this patient along with you make for recommendations and is located
[2020-09-15] MEDS ORDERED: PNEUMOCOCCAL 23 Valent 0.5 ML VIAL IM ONE (12:00)
[2020-09-15] MEDS ORDERED: FLU VACC QUAD 2020-2021 (6 months +)/PF 60 0.5 ML SYRINGE IM ONE (12:00)
[2020-09-15] MEDS ORDERED: ALBUMIN HUMAN 25% (25 GM/100 ML) INJ IV ONE ×3 (12:23→20:17)
--- NOTE | 2020-09-15 13:33 | Progress Note ---
Assessment and Plan Assessment and plan: 55 YO Male with Cirrhosis, ESRD on HD(T,R,Sa), ETOH Dependence, Nicotine Dependence, HTN presents to ED for evaluation. Patient states that he has been "feeling sick" over the past 3 days. Patient knowledges generalized body aches, fatigue, subjective fever. Patient was seen and evaluated by his primary care physician on the day of presentation and he was found to be hypotensive. He was instructed to go to the ER for further evaluation In the ER, patient was found to be hypotensive with lactic acidosis and elevated white counts. Patient was admitted on account of possible sepsis. Patient sta rted on broad-spectrum antibiotics. 09/15. Complains of slight back pain. Blood pressure is borderline so we will limit dose of narcotics for now. Patient has distended abdomen and he mentions that he usually gets paracentesis and his last paracentesis was about a week ago. He had about 10 L of ascitic fluid removed at that time. GI has been consulted for further evaluation. Patient will need to have paracentesis but this will be done with caution as patient has borderline low blood pressure. I have increased patient's midodrine to 10 mg 3 times daily and have ordered Albumin 25 g x 2 doses to be preferably given after paracentesis. Patient will need to remain in the IMCU for now. Plan to continue IV antibiotics for possible infection. He may have underlying infection as he has elevated white count otherwise etiology of lactic acidosis could be from hypoperfusion from low blood pressure. Check procalcitonin and if negative, will discontinue IV antibiotics. Problems --SIRS Status: Acute Plan to address problem: No source of infection identified at this time Continue to monitor blood pressure closely Repeat lactic acid levels and check procalcitonin COVID-19 test ordered --Liver cirrhosis with ascites Status: Acute Plan to address problem: Patient has alcoholic liver cirrhosis. No evidence of acute alcoholic hepatitis at this time Has distended abdomen and will need ultrasound paracentesis His INR is 1.5 so he can have paracentesis Plan to give 50 g of albumin after paracentesis Monitor blood pressure closely --Hyponatremia Status: Acute Plan to address problem: Likely hypervolemic hyponatremia from underlying ESRD and liver cirrhosis Continue to trend sodium levels Nephrology on board --End stage renal disease Status: Acute Plan to address problem: Continue modalities as scheduled --Hypertension Status: Acute Qualifiers: Hypertension type: essential hypertension Qualified Code(s): I10 - Essential (primary) hypertension Plan to address problem: Patient actually has hypotension so we will continue to monitor blood pressure Increase midodrine to 10 mg 3 times daily-monitor for adverse effects of midodrine which include urinary tract obstruction. --Nicotine dependence Status: Acute Qualifiers: Nicotine product type: cigarettes Substance use status: in withdrawal Qualified Code(s): F17.213 - Nicotine dependence, cigarettes, with withdrawal Plan to address problem: Smoking cessation counseling, supportive care, behavior change counseling, +15 minutes --DVT prophylaxis Status: Acute Plan to address problem: SCD to bilateral extremities while in bed, patient is ambulatory History Interval history: Patient seen and examined at bedside this morning Has no new complaints Vitals reviewed-blood pressure soft Labs reviewed Hospitalist Physical - Physical exam Narrative exam: VITAL SIGNS: Reviewed. GENERAL: Awake and alert on response to questions HEAD: No signs of head trauma. EYES: Pupils are equal. Extraocular motions intact. EARS: Hearing grossly intact. MOUTH: Oropharynx is normal. NECK: No adenopathy, no JVD. CHEST: Chest with diminished breath sounds bilaterally. No wheezes, rales, or rhonchi. CARDIAC: Regular rate and rhythm. S1 and S2, without murmurs, gallops, or rubs. VASCULAR: Slight leg edema ABDOMEN: Distended and nontender MUSCULOSKELETAL: Good range of motion of all major joints. NEUROLOGIC EXAM: Alert and oriented x3. No focal neurologic deficits PSYCHIATRIC: Stable mood SKIN: No obvious lesions - Constitutional Vitals: Temp Pulse Resp BP Pulse Ox 98.9 F 77 18 71/47 100 09/15/20 02:10 09/15/20 11:00 09/15/20 11:00 09/15/20 11:00 09/15/20 11:00 Results - Labs CBC & Chem 7: 09/15/20 08:57 09/15/20 08:57 Labs: Laboratory Last Values WBC 15.9 K/mm3 (4.5-11.0) H 09/15/20 08:57 RBC 2.67 M/mm3 (3.65-5.03) L 09/15/20 08:57 Hgb 8.8 gm/dl (11.8-15.2) L 09/15/20 08:57 Hct 26.0 % (35.5-45.6) L 09/15/20 08:57 MCV 97 fl (84-94) H 09/15/20 08:57 MCH 33 pg (28-32) H 09/15/20 08:57 MCHC 34 % (32-34) 09/15/20 08:57 RDW 15.5 % (13.2-15.2) H 09/15/20 08:57 Plt Count 95 K/mm3 (140-440) L 09/15/20 08:57 Lymph % (Auto) 11.0 % (13.4-35.0) L 09/15/20 08:57 [place] % (Auto) 10.4 % (0.0-7.3) H 09/15/20 08:57 Eos % (Auto) 0.2 % (0.0-4.3) 09/15/20 08:57 Baso % (Auto) 0.7 % (0.0-1.8) 09/15/20 08:57 Lymph # (Auto) 1.8 K/mm3 (1.2-5.4) 09/15/20 08:57 [place] # (Auto) 1.6 K/mm3 (0.0-0.8) H 09/15/20 08:57 Eos # (Auto) 0.0 K/mm3 (0.0-0.4) 09/15/20 08:57 Baso # (Auto) 0.1 K/mm3 (0.0-0.1) 09/15/20 08:57 Seg Neutrophils % 77.7 % (40.0-70.0) H 09/15/20 08:57 Seg Neutrophils # 12.3 K/mm3 (1.8-7.7) H 09/15/20 08:57 PT 18.8 Sec. (12.2-14.9) H 09/14/20 16:55 INR 1.55 (0.87-1.13) H 09/14/20 16:55 APTT 36.9 Sec. (24.2-36.6) H 09/14/20 16:55 Sodium 124 mmol/L (137-145) L 09/15/20 08:57 Potassium 5.1 mmol/L (3.6-5.0) H 09/15/20 08:57 Chloride 89.1 mmol/L (98-107) L 09/15/20 08:57 Carbon Dioxide 25 mmol/L (22-30) 09/15/20 08:57 Anion Gap 15 mmol/L 09/15/20 08:57 BUN 40 mg/dL (9-20) H 09/15/20 08:57 Creatinine 6.1 mg/dL (0.8-1.3) H 09/15/20 08:57 Estimated GFR 10 ml/min 09/15/20 08:57 BUN/Creatinine Ratio 7 % 09/15/20 08:57 Glucose 128 mg/dL (75-100) H 09/15/20 08:57 Lactic Acid 2.70 mmol/L (0.7-2.0) H* 09/14/20 18:15 Calcium 7.1 mg/dL (8.4-10.2) L 09/15/20 08:57 Magnesium 2.40 mg/dL (1.7-2.3) H 09/14/20 16:55 Total Bilirubin 2.00 mg/dL (0.1-1.2) H 09/15/20 08:57 AST 47 units/L (5-40) H 09/15/20 08:57 ALT 18 units/L (7-56) 09/15/20 08:57 Alkaline Phosphatase 137 units/L (35-129) H 09/15/20 08:57 Total Protein 4.3 g/dL (6.3-8.2) L 09/15/20 08:57 Albumin 1.4 g/dL (3.9-5) L 09/15/20 08:57 Albumin/Globulin Ratio 0.5 % 09/15/20 08:57 Plasma/Serum Alcohol < 0.01 % (0-0.07) 09/14/20 16:55 Microbiology: Microbiology 09/14/20 18:15 Peripheral/Venous Blood Culture - Preliminary Culture in Progress 09/14/20 18:18 Peripheral/Venous Blood Culture - Preliminary Culture in Progress Pat/IV: IV Catheter Type [Left Wrist] INT / Saline Lock IV Catheter Type [Right permacath Internal Jugular] Active Medications - Current Medications Current Medications: Generic Name Dose Route Start Last Admin Trade Name Freq PRN Reason Stop Dose Admin Cholecalciferol 5,000 unit 09/15/20 10:00 09/15/20 09:47 Vitamin D3 PO 5,000 unit DAILY DAVID Administration Epoetin Caleb 10,000 unit 09/15/20 11:34 Procrit IV ANDREW PRN hemodialysis Folic Acid 1 mg 09/15/20 10:00 09/15/20 09:07 Folvite PO 1 mg QDAY DAVID Administration Furosemide 40 mg 09/15/20 10:00 09/15/20 09:11 Lasix PO 40 mg QDAY DAVID Administration Heparin Sodium (Porcine) 5,000 unit 09/15/20 11:34 Heparin IV ANDREW PRN hemodialysis Hydromorphone HCl 0.25 mg 09/14/20 20:30 09/15/20 04:15 Dilaudid IV 0.25 mg Q4H PRN Administration Pain, Moderate (4-6) Sodium Chloride 100 mls @ 999 mls/hr 09/15/20 11:34 Nacl 0.9% IV ANDREW PRN Hypotension Lactulose 20 gm 09/15/20 10:00 09/15/20 09:17 Cephulac PO Not Given QDAY [facility] Levofloxacin 500 mg 09/14/20 22:00 09/14/20 23:32 Levaquin PO 500 mg Q48H DAVID Administration Protocol Lidocaine 1 each 09/15/20 13:00 Lidoderm 5% TD QDAY DAVID Megestrol Acetate 20 mg 09/15/20 10:00 09/15/20 09:07 Megestrol PO 20 mg QID DAVID Administration Midodrine 10 mg 09/15/20 14:00 Proamatine PO TID DAVID Nicotine 21 mg 09/15/20 13:00 Habitrol TD QDAY DAVID Pantoprazole Sodium 40 mg 09/15/20 10:00 09/15/20 09:07 Protonix PO 40 mg QDAY [facility]ID Administration Rifaximin 550 mg 09/14/20 22:00 09/15/20 09:07 Xifaxan PO 550 mg BID DAVID Administration Sodium Chloride 10 ml 09/14/20 22:00 09/15/20 09:11 Sodium Chloride Flush Syringe 10 Ml IV 10 ml BID DAVID Administration Sodium Chloride 10 ml 09/14/20 20:29 Sodium Chloride Flush Syringe 10 Ml IV PRN PRN LINE FLUSH Spironolactone 100 mg 09/14/20 22:00 09/15/20 09:06 Aldactone PO 100 mg BID DAVID Administration Thiamine HCl 100 mg 09/15/20 10:00 09/15/20 09:07 Vitamin B-1 PO 100 mg QDAY DAVID Administration
[2020-09-15] MEDS: NICOTINE 21 MG/24 HR PATCH TD SCH (14:35)
[2020-09-15] MEDS: MIDODRINE 5 MG TAB PO SCH ×2 (14:35→20:21)
[2020-09-15] MEDS: LIDOCAINE 5% 1 EACH PATCH TD SCH (14:35)
[2020-09-15 16:25] LABS: Hepatitis B Surface Antigen Non-Reactive (Negative); Hepatitis C Virus Antibody Non-Reactive (NonReactive)
--- NOTE | 2020-09-15 20:34 | Event Note ---
Date: 09/15/20 As per nursing patient has 2 sets of blood cultures positive for cocci in clusters and pairs Patient initiated on IV vancomycin and cefepime pending sensitivity results
[2020-09-15] MEDS ORDERED: VANCOMYCIN PHARMACY TO DOSE IV SCH (21:00)
[2020-09-15] MEDS ORDERED: ALBUMIN HUMAN 5% (25 GM/500 ML) INJ IV ONE (21:00)
[2020-09-15] MEDS ORDERED: CEFEPIME IV SCH (22:00)
[2020-09-15] MEDS ORDERED: CEFEPIME/NS 1 GM/100 ML 1 GM/100 ML BAG IV SCH (22:00)
[2020-09-15] MEDS ORDERED: NS IV SCH (22:00)
[2020-09-15] MEDS ORDERED: CEFEPIME 0.5 GM in SODIUM CHLORIDE 0.9% 100 ML IV SCH (22:00)
[2020-09-15] MEDS ORDERED: VANCOMYCIN 1,250 MG in SODIUM CHLORIDE 0.9% 250ML 250 ML IV ONE (23:00)
[2020-09-16] MEDS ORDERED: ALBUMIN HUMAN 5% (25 GM/500 ML) INJ IV NR (06:00)
[2020-09-16] MEDS ORDERED: PANTOPRAZOLE 40 MG TAB PO SCH (07:30)
[2020-09-16 07:55] LABS: Hematocrit 21.6 % (35.5-45.6); Hemoglobin 7.2 gm/dl (11.8-15.2); Mean Corpuscular HGB Conc 33 % (32-34); Mean Corpuscular Volume 97 fl (84-94); Red Blood Count 2.22 M/mm3 (3.65-5.03); Red Cell Distribution Width 15.7 % (13.2-15.2)
[2020-09-16 08:09] LABS: INR 1.49 (0.87-1.13)
[2020-09-16 08:11] LABS: Platelet Count 95 K/mm3 (140-440)
[2020-09-16 08:18] LABS: Calcium 7.5 mg/dL (8.4-10.2)
--- NOTE | 2020-09-16 08:47 | XRay Report ---
CHEST 1 VIEW INDICATION / CLINICAL INFORMATION: Dyspnea FINDINGS: SUPPORT DEVICES: No significant change in position. HEART / MEDIASTINUM: The cardiomediastinal silhouette has not significantly changed in the interim. LUNGS / PLEURA: Worsening bilateral lower lung airspace disease/atelectasis when compared to 09/14/20. Signer Name: Eduardo Mendoza MD Signed: 09/16/2020 8:46 AM Workstation Name: [id number]
[2020-09-16] MEDS: FOLIC ACID 1 MG TAB PO SCH (09:39)
[2020-09-16] MEDS: FUROSEMIDE 40 MG TAB PO SCH (09:39)
[2020-09-16] MEDS: NICOTINE 21 MG/24 HR PATCH TD SCH (09:39)
[2020-09-16] MEDS: MIDODRINE 5 MG TAB PO SCH (09:39)
[2020-09-16] MEDS: MEGESTROL 40 MG TAB PO SCH (09:40)
[2020-09-16] MEDS: THIAMINE 100 MG TAB PO SCH (09:40)
[2020-09-16] MEDS: SPIRONOLACTONE 50 MG TAB PO SCH (09:40)
[2020-09-16] MEDS: CHOLECALCIFEROL (VIT D3) 5,000 UNIT TAB PO SCH (09:40)
[2020-09-16] MEDS: LACTULOSE 20 GM/30 ML ORAL LIQD PO SCH (09:41)
[2020-09-16] MEDS: RIFAXIMIN 550 MG TAB PO SCH (09:41)
[2020-09-16] MEDS: LIDOCAINE 5% 1 EACH PATCH TD SCH (09:42)
[2020-09-16 10:55] LABS: Basophils % (Manual) 0 % (0.0-1.8); Total Cells Counted 100
[2020-09-16 10:56] LABS: Poikilocytosis Rare; Target Cells Rare
[2020-09-16 10:58] LABS: Platelet Estimate Consistent w Auto
--- NOTE | 2020-09-16 11:56 | Progress Note ---
Assessment and Plan Assessment and plan: 55 YO Male with Cirrhosis, ESRD on HD(T,R,Sa), ETOH Dependence, Nicotine Dependence, HTN presents to ED for evaluation. Patient states that he has been "feeling sick" over the past 3 days. Patient knowledges generalized body aches, fatigue, subjective fever. Patient was seen and evaluated by his primary care physician on the day of presentation and he was found to be hypotensive. He was instructed to go to the ER for further evaluation. In the ER, patient was found to be hypotensive with lactic acidosis and elevated white counts. Patient was admitted on account of possible sepsis. Patient st arted on broad-spectrum antibiotics. 09/15. Complains of slight back pain. Blood pressure is borderline so we will limit dose of narcotics for now. Patient has distended abdomen and he mentions that he usually gets paracentesis and his last paracentesis was about a week ago. He had about 10 L of ascitic fluid removed at that time. GI has been consulted for further evaluation. Patient will need to have paracentesis but this will be done with caution as patient has borderline low blood pressure. I have increased patient's midodrine to 10 mg 3 times daily and have ordered Albumin 25 g x 2 doses to be preferably given after paracentesis. Patient will need to remain in the IMCU for now. Plan to continue IV antibiotics for possible infection. He may have underlying infection as he has elevated white count otherwise etiology of lactic acidosis could be from hypoperfusion from low blood pressure. Check procalcitonin and if negative, will discontinue IV antibiotics. 09/16. Patient seen and examined at bedside this morning. Blood pressure borderline. Suspect patient usually runs low. However patient noted to have gram-positive cocci in clusters in blood culture. Patient started on IV antibiotics. Procalcitonin is also elevated. Patient does not look septic. Has no signs of end organ damage. Plan to have paracentesis as per IR today. Patient will need albumin after paracentesis (ordered). Continue midodrine for now to reduce splanchnic vasodilation. We will continue to monitor vital signs closely. Problems --[id number] cocci Status: Acute Plan to address problem: No source of infection identified at this time Continue vancomycin ID has been consulted Echocardiogram to rule endocarditis Patient states that his dialysis catheter was placed about 2 weeks ago. If culture remains positive, plan to get vascular surgery to replace catheter --Liver cirrhosis with ascites Status: Acute Plan to address problem: Patient has alcoholic liver cirrhosis. No evidence of acute alcoholic hepatitis at this time Ultrasound paracentesis as per GI-ordered Needs albumin after paracentesis. Monitor blood pressure closely --Hyponatremia Status: Acute Plan to address problem: Sodium slightly improved today Likely hypervolemic hyponatremia from underlying ESRD and liver cirrhosis Continue to trend sodium levels Nephrology on board --End stage renal disease Status: Acute Plan to address problem: Continue HD as scheduled --Hypotension Status: Acute Qualifiers: Hypertension type: essential hypertension Qualified Code(s): I10 - Essential (primary) hypertension Plan to address problem: Continue to monitor blood pressure Continue midodrine to 10 mg 3 times daily-monitor for adverse effects. --Nicotine dependence Status: Acute Qualifiers: Nicotine product type: cigarettes Substance use status: in withdrawal Qualified Code(s): F17.213 - Nicotine dependence, cigarettes, with withdrawal Plan to address problem: Smoking cessation counseling, supportive care, behavior change counseling, +15 minutes --DVT prophylaxis Status: Acute Plan to address problem: SCD to bilateral extremities while in bed, patient is ambulatory History Interval history: Patient seen and examined at bedside this morning Patient is alert and oriented x3 Patient has no complaints today-stated he wants to go home after paracentesis Paracentesis ordered as per GI. Radiology to schedule INR less than 1.5 Labs reviewed-procalcitonin elevated. Blood culture positive for gram-positive cocci. Patient started on antibiotics Echocardiogram has been ordered to rule out endocarditis. Hospitalist Physical - Physical exam Narrative exam: VITAL SIGNS: Reviewed. GENERAL: Awake and alert on response to questions HEAD: No signs of head trauma. EYES: Pupils are equal. Extraocular motions intact. EARS: Hearing grossly intact. MOUTH: Oropharynx is normal. NECK: No adenopathy, no JVD. CHEST: Chest with diminished breath sounds bilaterally. No wheezes, rales, or rhonchi. CARDIAC: Regular rate and rhythm. S1 and S2, without murmurs, gallops, or rubs. VASCULAR: No cyanosis ABDOMEN: Distended and nontender MUSCULOSKELETAL: Good range of motion of all major joints. NEUROLOGIC EXAM: Alert and oriented x3. No focal neurologic deficits PSYCHIATRIC: Stable mood SKIN: No obvious lesions - Constitutional Vitals: Temp Pulse Resp BP Pulse Ox 98.2 F 80 12 81/44 100 09/16/20 08:00 09/16/20 09:40 09/16/20 08:46 09/16/20 09:40 09/16/20 08:46 General appearance: Present: mild distress Results - Labs CBC & Chem 7: 09/16/20 06:42 09/16/20 06:42 Labs: Laboratory Last Values WBC 15.7 K/mm3 (4.5-11.0) H 09/16/20 06:42 RBC 2.22 M/mm3 (3.65-5.03) L 09/16/20 06:42 Hgb 7.2 gm/dl (11.8-15.2) L 09/16/20 06:42 Hct 21.6 % (35.5-45.6) L 09/16/20 06:42 MCV 97 fl (84-94) H 09/16/20 06:42 MCH 32 pg (28-32) 09/16/20 06:42 MCHC 33 % (32-34) 09/16/20 06:42 RDW 15.7 % (13.2-15.2) H 09/16/20 06:42 Plt Count 95 K/mm3 (140-440) L 09/16/20 06:42 Lymph % (Auto) 11.0 % (13.4-35.0) L 09/15/20 08:57 Dunn % (Auto) Excavator Operator 09/16/20 06:42 Eos % (Auto) 0.2 % (0.0-4.3) 09/15/20 08:57 Baso % (Auto) 0.7 % (0.0-1.8) 09/15/20 08:57 Lymph # (Auto) 1.8 K/mm3 (1.2-5.4) 09/15/20 08:57 Dunn # (Auto) 1.6 K/mm3 (0.0-0.8) H 09/15/20 08:57 Eos # (Auto) 0.0 K/mm3 (0.0-0.4) 09/15/20 08:57 Baso # (Auto) 0.1 K/mm3 (0.0-0.1) 09/15/20 08:57 Add Manual Diff Complete 09/16/20 06:42 Total Counted 100 09/16/20 06:42 Seg Neutrophils % 77.7 % (40.0-70.0) H 09/15/20 08:57 Seg Neuts % (Manual) 81.0 % (40.0-70.0) H 09/16/20 06:42 Band Neutrophils % 0 % 09/16/20 06:42 Lymphocytes % (Manual) 15.0 % (13.4-35.0) 09/16/20 06:42 Reactive Lymphs % (Man) 0 % 09/16/20 06:42 Monocytes % (Manual) 2.0 % (0.0-7.3) 09/16/20 06:42 Eosinophils % (Manual) 1.0 % (0.0-4.3) 09/16/20 06:42 Basophils % (Manual) 0 % (0.0-1.8) 09/16/20 06:42 Metamyelocytes % 1.0 % 09/16/20 06:42 Myelocytes % 0 % 09/16/20 06:42 Promyelocytes % 0 % 09/16/20 06:42 Blast Cells % 0 % 09/16/20 06:42 Nucleated RBC % Not Reportable 09/16/20 06:42 Seg Neutrophils # 12.3 K/mm3 (1.8-7.7) H 09/15/20 08:57 Seg Neutrophils # Man 12.7 K/mm3 (1.8-7.7) H 09/16/20 06:42 Band Neutrophils # 0.0 K/mm3 09/16/20 06:42 Lymphocytes # (Manual) 2.4 K/mm3 (1.2-5.4) 09/16/20 06:42 Abs React Lymphs (Man) 0.0 K/mm3 09/16/20 06:42 Monocytes # (Manual) 0.3 K/mm3 (0.0-0.8) 09/16/20 06:42 Eosinophils # (Manual) 0.2 K/mm3 (0.0-0.4) 09/16/20 06:42 Basophils # (Manual) 0.0 K/mm3 (0.0-0.1) 09/16/20 06:42 Metamyelocytes # 0.2 K/mm3 09/16/20 06:42 Myelocytes # 0.0 K/mm3 09/16/20 06:42 Promyelocytes # 0.0 K/mm3 09/16/20 06:42 Blast Cells # 0.0 K/mm3 09/16/20 06:42 WBC Morphology Not Reportable 09/16/20 06:42 Hypersegmented Neuts Not Reportable 09/16/20 06:42 Hyposegmented Neuts Not Reportable 09/16/20 06:42 Hypogranular Neuts Not Reportable 09/16/20 06:42 Smudge Cells Not Reportable 09/16/20 06:42 Toxic Granulation Not Reportable 09/16/20 06:42 Toxic Vacuolation Not Reportable 09/16/20 06:42 Dohle Bodies Not Reportable 09/16/20 06:42 Pelger-Huet Anomaly Not Reportable 09/16/20 06:42 Lucas Rods Not Reportable 09/16/20 06:42 Platelet Estimate Consistent w auto 09/16/20 06:42 Clumped Platelets Not Reportable 09/16/20 06:42 Plt Clumps, EDTA Not Reportable 09/16/20 06:42 Large Platelets Not Reportable 09/16/20 06:42 Giant Platelets Not Reportable 09/16/20 06:42 Platelet Satelliting Not Reportable 09/16/20 06:42 Plt Morphology Comment Not Reportable 09/16/20 06:42 RBC Morphology Not Reportable 09/16/20 06:42 Dimorphic RBCs Not Reportable 09/16/20 06:42 Polychromasia Not Reportable 09/16/20 06:42 Hypochromasia Not Reportable 09/16/20 06:42 Poikilocytosis Rare 09/16/20 06:42 Anisocytosis Not Reportable 09/16/20 06:42 Microcytosis Rare 09/16/20 06:42 Macrocytosis Not Reportable 09/16/20 06:42 Spherocytes Not Reportable 09/16/20 06:42 Pappenheimer Bodies Not Reportable 09/16/20 06:42 Sickle Cells Not Reportable 09/16/20 06:42 Target Cells Rare 09/16/20 06:42 Tear Drop Cells Not Reportable 09/16/20 06:42 Ovalocytes Not Reportable 09/16/20 06:42 Helmet Cells Not Reportable 09/16/20 06:42 Harris-Ashdown Bodies Not Reportable 09/16/20 06:42 Shawnee Rings Not Reportable 09/16/20 06:42 Mansfield Cells Not Reportable 09/16/20 06:42 Bite Cells Not Reportable 09/16/20 06:42 Crenated Cell Not Reportable 09/16/20 06:42 Elliptocytes Rare 09/16/20 06:42 Acanthocytes (Spur) Not Reportable 09/16/20 06:42 Rouleaux Not Reportable 09/16/20 06:42 Hemoglobin C Crystals Not Reportable 09/16/20 06:42 Schistocytes Not Reportable 09/16/20 06:42 Malaria parasites Not Reportable 09/16/20 06:42 Everette Bodies Not Reportable 09/16/20 06:42 Hem Pathologist Commnt No 09/16/20 06:42 PT 18.2 Sec. (12.2-14.9) H 09/16/20 06:42 INR 1.49 (0.87-1.13) H 09/16/20 06:42 APTT 36.9 Sec. (24.2-36.6) H 09/14/20 16:55 Sodium 130 mmol/L (137-145) L 09/16/20 06:42 Potassium 4.3 mmol/L (3.6-5.0) 09/16/20 06:42 Chloride 92.9 mmol/L (98-107) L 09/16/20 06:42 Carbon Dioxide 26 mmol/L (22-30) 09/16/20 06:42 Anion Gap 15 mmol/L 09/16/20 06:42 BUN 29 mg/dL (9-20) H 09/16/20 06:42 Creatinine 4.9 mg/dL (0.8-1.3) H 09/16/20 06:42 Estimated GFR 12 ml/min 09/16/20 06:42 BUN/Creatinine Ratio 6 % 09/16/20 06:42 Glucose 109 mg/dL (75-100) H 09/16/20 06:42 Lactic Acid 2.70 mmol/L (0.7-2.0) H* 09/14/20 18:15 Calcium 7.5 mg/dL (8.4-10.2) L 09/16/20 06:42 Magnesium 2.40 mg/dL (1.7-2.3) H 09/14/20 16:55 Total Bilirubin 1.90 mg/dL (0.1-1.2) H 09/16/20 06:42 AST 33 units/L (5-40) 09/16/20 06:42 ALT 14 units/L (7-56) 09/16/20 06:42 Alkaline Phosphatase 97 units/L (35-129) 09/16/20 06:42 Total Protein 4.2 g/dL (6.3-8.2) L 09/16/20 06:42 Albumin 2.0 g/dL (3.9-5) L 09/16/20 06:42 Albumin/Globulin Ratio 0.9 % 09/16/20 06:42 Procalcitonin 19.90 ng/mL (<0.15) 09/16/20 06:42 Plasma/Serum Alcohol < 0.01 % (0-0.07) 09/14/20 16:55 Hepatitis A IgM Ab Non-reactive (NonReactive) 09/15/20 15:17 Hep Bs Antigen Non-reactive (Negative) 09/15/20 15:17 Hep B Core IgM Ab Non-reactive (NonReactive) 09/15/20 15:17 Hepatitis C Antibody Non-reactive (NonReactive) 09/15/20 15:17 Microbiology: Microbiology 09/15/20 03:16 Nares - Left MRSA Culture - Preliminary 09/16/20 07:23 Peripheral/Venous Blood Culture - Preliminary Culture in Progress 09/16/20 06:42 Peripheral/Venous Blood Culture - Preliminary Culture in Progress 09/14/20 18:18 Peripheral/Venous Blood Culture - Preliminary 09/14/20 18:15 Peripheral/Venous Blood Culture - Preliminary Pat/IV: IV Catheter Type [Left Wrist] INT / Saline Lock IV Catheter Type [Right permacath Internal Jugular] Active Medications - Current Medications Current Medications: Generic Name Dose Route Start Last Admin Trade Name Freq PRN Reason Stop Dose Admin Cholecalciferol 5,000 unit 09/15/20 10:00 09/16/20 09:40 Vitamin D3 PO 5,000 unit DAILY DAVID Administration Epoetin Caleb 10,000 unit 09/15/20 11:34 Procrit IV ANDREW PRN hemodialysis Folic Acid 1 mg 09/15/20 10:00 09/16/20 09:39 Folvite PO 1 mg QDAY DAVID Administration Furosemide 40 mg 11/17/20 10:00 09/16/20 09:39 Lasix PO 40 mg QDAY DAVID Administration Heparin Sodium (Porcine) 5,000 unit 09/15/20 11:34 Heparin IV ANDREW PRN hemodialysis Hydromorphone HCl 0.25 mg 09/14/20 20:30 09/15/20 04:15 Dilaudid IV 0.25 mg Q4H PRN Administration Pain, Moderate (4-6) Sodium Chloride 100 mls @ 999 mls/hr 09/15/20 11:34 Nacl 0.9% IV ANDREW PRN Hypotension Cefepime HCl 1 gm in 100 mls @ 200 mls/hr 09/16/20 22:00 Cefepime/Ns 1 Gm/100 Ml IV Q24H [facility] Protocol Lactulose 20 gm 09/15/20 10:00 09/16/20 09:41 Cephulac PO Not Given QDAY DAVID Levofloxacin 500 mg 09/14/20 22:00 09/14/20 23:32 Levaquin PO 500 mg Q48H [facility] Administration Protocol Lidocaine 1 each 09/15/20 13:00 09/16/20 09:42 Lidoderm 5% TD 1 each QDAY DAVID Administration Megestrol Acetate 20 mg 09/15/20 10:00 09/16/20 09:40 Megestrol PO 20 mg QID DAVID Administration Midodrine 10 mg 09/15/20 14:00 09/16/20 09:39 Proamatine PO 10 mg TID DAVID Administration Nicotine 21 mg 09/15/20 13:00 09/16/20 09:39 Habitrol TD 21 mg QDAY DAVID Administration Pantoprazole Sodium 40 mg 09/16/20 07:30 09/16/20 09:39 Protonix PO 40 mg QDAC DAVID Administration Rifaximin 550 mg 09/14/20 22:00 09/16/20 09:41 Xifaxan PO 550 mg BID DAVID Administration Sodium Chloride 10 ml 09/14/20 22:00 09/16/20 09:43 Sodium Chloride Flush Syringe 10 Ml IV 10 ml BID DAVID Administration Sodium Chloride 10 ml 09/14/20 20:29 Sodium Chloride Flush Syringe 10 Ml IV PRN PRN LINE FLUSH Spironolactone 100 mg 09/14/20 22:00 09/16/20 09:40 Aldactone PO 100 mg BID DAVID Administration Thiamine HCl 100 mg 09/15/20 10:00 09/16/20 09:40 Vitamin B-1 PO 100 mg QDAY DAVID Administration Nutrition/Malnutrition Assess - Dietary Evaluation Nutrition/Malnutrition Findings: Nutrition Notes Start: 09/15/20 13:55 Freq: Status: Active Protocol: Document 09/16/20 11:05 EN (Rec: 09/16/20 11:30 EN [id number]) Co-Sign 09/16/20 11:05 LP Nutrition Notes Initial or Follow up Reassessment Current Diagnosis Sepsis,Hypertension Other Pertinent Diagnosis ESRD on HD, Cirrhosis of liver with ascites, Hyponatremia Current Diet Renal with Nepro daily Labs/Tests Na 130, BUN 29, Cr 4.9, Glu 109 Pertinent Medications Lasix Thiamine Folic Acid Vitamin D3 Height 5 ft 9 in Weight 70 kg [place] Body Weight (kg) 72.72 BMI 22.8 Intake Prior to Admission Good Weight change and time frame 7% wt loss in 1 week Weight Status Appropriate Subjective/Other Information F/u for intakes and nutrition hx. Pt states that last week he weighed 167 lbs (75.7kg) and he now weighs 154 lbs ( 70kg). Pt is unsure of his UBW d/t paracentesis. Pt appears to have temporal wasting and fat depletion. Pt reports good appetite and denies N/V/D. Pt was eating breakfast at time of assessment and had eaten about 50%. Pt states that he only ate jello last night and that he was feeling full afterwards. DI explained the correlation between high sodium foods, fluid retention and appetite. DI explained the importance of a low sodium diet and educated the patient on foods that are high sodium. Pt verbalized frustration with diet restricion and would like grits, oatmeal and cream of wheat with his meals. Pt likes Nepro and is receiving ONS daily. Burn Absent Trauma Absent GI Symptoms None Food Allergy No Current % PO Poor (25-49%) Minimum of two criteria Yes Interpretation of Weight Loss (severe) >2% in 1 week Body Fat Depletion Mild depletion (non-severe) Muscle Mass Mild Depletion (non-severe) #1 Nutrition Diagnosis Malnutrition Etiology ESRD and Cirrhosis of the liver with ascites As Evidenced by Signs and Symptoms 7% wt loss in 1 week, 25% meal consumption (average of past two meals). Is patient on ventilator? No Is Patient Ambulatory and/or Out of Bed Yes REE-([facility]-ambulatory/OOB) [ 1982.994 [id number]] Calculation Used for Recommendations [facility] Additional Notes Protein: 1.2-2 g/kg (84-140g) Fluid: Urine output + 1000ml Nutrition Intervention Change Diet Order: Continue Renal diet with Nepro Daily Add Supplement/Snack (indicate name/kcal Nepro Butter Pecan Daily /protein ) Provides kCal: 425 Provides Protein (gm) 19 Goal #1 Meet at least 75% of energy and protein needs with PO intake and ONS Goal #2 Weight maintenance Anticipated Discharge Needs: Renal diet with ONS as needed Follow-Up By: 09/18/20 Additional Comments F/u for intakes
--- NOTE | 2020-09-16 12:04 | Consultation ---
History of Present Illness - Reason for Consult Consult date: 09/16/20 Bacteremia Requesting physician: ROSALES BARRETT - History of Present Illness The patient is a 55-year-old male with alcoholic cirrhosis, ESRD on hemodialysis, hypertension was admitted to the hospital with complaints of not feeling well, fever, chills going on for about a month. He also has abdominal distention from ascites and has been getting paracentesis at his gastroentero logy office. On admission, noted to have leukocytosis. Afebrile here. Blood cultures done on admission are positive for GPC, hence infectious diseases was consulted. He also complains of mild soreness in his abdomen. Review of Systems: General: Fever and chills at home HEENT: no new visual disturbance Respiratory: No cough, sputum, hemoptysis or shortness of breath Cardiovascular: No chest pain, syncope Gastrointestinal: No nausea, vomiting or diarrhea. 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 denies: prescription drug abuse, IV drug use Family history: cancer (Mother), diabetes (Father), hypertension (Father) Medications and Allergies Allergies Allergy/AdvReac Type Severity Reaction Status Date / Time No Known Allergies Allergy Verified 05/01/16 10:24 Home Medications Medication Instructions Recorded Confirmed Last Taken Type Cholecalciferol (Vitamin D3) 5,000 unit PO DAILY 09/14/20 09/14/20 Unknown H istory [Vitamin D3] Folic Acid [Folvite] 1 mg PO QDAY 09/14/20 09/14/20 Unknown History Furosemide [Lasix TAB] 40 mg PO QDAY 09/14/20 09/14/20 Unknown History Lactulose [Kristalose] 20 gm PO QDAY 09/14/20 09/14/20 Unknown History Midodrine [Proamatine] 5 mg PO TID 09/14/20 09/14/20 Unknown History Pantoprazole [Protonix] 40 mg PO QDAY 09/14/20 09/14/20 Unknown History Rifaximin [Xifaxan] 550 mg PO BID 09/14/20 09/14/20 Unknown History Spironolactone [Aldactone] 100 mg PO BID 09/14/20 09/14/20 Unknown History Thiamine [Vitamin B-1] 100 mg PO QDAY 09/14/20 09/14/20 Unknown History megestroL [Megace] 20 mg PO QID 09/14/20 09/14/20 Unknown History Nicotine Polacrilex [Nicotine Gum] 4 mg PO PRN PRN 09/15/20 09/15/20 09/15/20 History Nicotine [Habitrol] 21 mg TP QDAY 09/15/20 09/15/20 09/14/20 History Active Meds: Active Medications Cholecalciferol (Vitamin D3) 5,000 unit PO DAILY [facility] Last Admin: 09/16/20 09:40 Dose: 5,000 unit Documented by: Epoetin Caleb (Procrit) 10,000 unit IV ANDREW PRN PRN Reason: hemodialysis Folic Acid (Folvite) 1 mg PO QDAY [facility] Last Admin: 09/16/20 09:39 Dose: 1 mg Documented by: Furosemide (Lasix) 40 mg PO QDAY [facility] Last Admin: 09/16/20 09:39 Dose: 40 mg Documented by: Heparin Sodium (Porcine) (Heparin) 5,000 unit IV ANDREW PRN PRN Reason: hemodialysis Hydromorphone HCl (Dilaudid) 0.25 mg IV Q4H PRN PRN Reason: Pain, Moderate (4-6) Last Admin: 09/15/20 04:15 Dose: 0.25 mg Documented by: Sodium Chloride (Nacl 0.9%) 100 mls @ 999 mls/hr IV ANDREW PRN PRN Reason: Hypotension Ceftriaxone Sodium (Rocephin/Ns 1 Gm/50 Ml) 1 gm in 50 mls @ 100 mls/hr IV Q24HR [facility]; Protocol Lactulose (Cephulac) 20 gm PO QDAY [facility] Last Admin: 09/16/20 09:41 Dose: Not Given Documented by: Lidocaine (Lidoderm 5%) 1 each TD QDAY [facility] Last Admin: 09/16/20 09:42 Dose: 1 each Documented by: Megestrol Acetate (Megestrol) 20 mg PO QID [facility] Last Admin: 09/16/20 09:40 Dose: 20 mg Documented by: Midodrine (Proamatine) 10 mg PO TID [facility] Last Admin: 09/16/20 09:39 Dose: 10 mg Documented by: Nicotine (Habitrol) 21 mg TD QDAY [facility] Last Admin: 09/16/20 09:39 Dose: 21 mg Documented by: Pantoprazole Sodium (Protonix) 40 mg PO QDAC [facility] Last Admin: 09/16/20 09:39 Dose: 40 mg Documented by: Rifaximin (Xifaxan) 550 mg PO BID [facility] Last Admin: 09/16/20 09:41 Dose: 550 mg Documented by: Sodium Chloride (Sodium Chloride Flush Syringe 10 Ml) 10 ml IV BID [facility] Last Admin: 09/16/20 09:43 Dose: 10 ml Documented by: Sodium Chloride (Sodium Chloride Flush Syringe 10 Ml) 10 ml IV PRN PRN PRN Reason: LINE FLUSH Spironolactone (Aldactone) 100 mg PO BID [facility] Last Admin: 09/16/20 09:40 Dose: 100 mg Documented by: Thiamine HCl (Vitamin B-1) 100 mg PO QDAY [facility] Last Admin: 09/16/20 09:40 Dose: 100 mg Documented by: Physical Examination - Physical Exam Narrative exam: Physical Exam: Constitutional: Alert, cooperative. No acute distress Head, Ears, Nose: Normocephalic, atraumatic. External ears, nose normal Eyes: Conjunctivae/corneas clear. No icterus. No ptosis. Neck: Supple, no meningeal signs Cardiovascular: S1, S2 normal. Respiratory: Good air entry, clear to auscultation bilaterally GI: Distended abdomen, mild tenderness; bowel sounds normal. No peritoneal signs Musculoskeletal: No pedal edema, no cyanosis. Skin: No rash or abscess Hem/Lymphatic: No palpable cervical or supraclavicular nodes. No lymphangitis Psych: Affect flat. Neurological: Awake, alert, oriented. No gross abnormality - Constitutional Vitals: Vital Signs Temp Pulse Resp BP Pulse Ox 98.2 F 80 12 81/44 100 09/16/20 08:00 09/16/20 09:40 09/16/20 08:46 09/16/20 09:40 09/16/20 08:46 Temperature -Last 24 Hours Temperature 98.2 F Temperature 97.7 F Temperature 97.9 F Temperature 97.5 F Temperature 97.5 F Temperature 97.5 F Temperature 97.5 F Results - Labs CBC & Chem 7: 09/16/20 06:42 09/16/20 06:42 Labs: Abnormal lab results 09/16/20 09/16/20 09/16/20 Range/Units 06:42 06:42 06:42 WBC 15.7 H (4.5-11.0) K/mm3 RBC 2.22 L (3.65-5.03) M/mm3 Hgb 7.2 L (11.8-15.2) gm/dl Hct 21.6 L (35.5-45.6) % MCV 97 H (84-94) fl RDW 15.7 H (13.2-15.2) % Plt Count 95 L (140-440) K/mm3 Seg Neuts % (Manual) 81.0 H (40.0-70.0) % Seg Neutrophils # Man 12.7 H (1.8-7.7) K/mm3 PT 18.2 H (12.2-14.9) Sec. INR 1.49 H (0.87-1.13) Sodium 130 L (137-145) mmol/L Chloride 92.9 L (98-107) mmol/L BUN 29 H (9-20) mg/dL Creatinine 4.9 H (0.8-1.3) mg/dL Glucose 109 H (75-100) mg/dL Calcium 7.5 L (8.4-10.2) mg/dL Total Bilirubin 1.90 H (0.1-1.2) mg/dL Total Protein 4.2 L (6.3-8.2) g/dL Albumin 2.0 L (3.9-5) g/dL - Imaging and Cardiology Chest x-ray: report reviewed, image reviewed (HD cath +, no pneumonia seen) Assessment and Plan Cultures: 09/14/2020 blood culture: Both sets positive for GPC in pairs and chains 09/16/2020 blood culture: In process A/P: 55-year-old male with alcoholic cirrhosis, ESRD on hemodialysis, hypertension was admitted to the hospital with complaints of not feeling well, fever, chills going on for about a month: #Sepsis, secondary to GPC bacteremia: Source could be from SBP versus dialysis catheter. #Alcoholic cirrhosis with ascites: Awaiting ultrasound-guided paracentesis. #ESRD on HD: Has indwelling dialysis catheter. Renally dose antibiotics. Recs: Empiric ceftriaxone, vancomycin, renally dosed Follow-up repeat blood cultures and TTE Awaiting ultrasound-guided paracentesis, follow-up cell count and cultures Okay to leave HD catheter in place for now Tahmina Mcleod MD, FACP [facility] O: [phone] F: [phone]
--- NOTE | 2020-09-16 12:08 | Progress Note ---
Assessment and Plan #1 hyponatremia improving. 2. Hyperkalemia. Improved. 3. Alcoholic liver disease with ascites. Tense ascites 4. Hypotension, leukocytosis. Blood cultures growing gram-positive cocci 5. Anemia with thrombocytopenia 6. End-stage renal disease on hemodialysis Recommendations: 1. Follow-up cultures 2. Hemodialysis again in the morning for fluid removal and solute clearance. 3. Give midodrine before dialysis. 4. Give erythropoietin on dialysis 5. For paracentesis per primary attending 6. Antibiotics per infectious disease. Adjust doses appropriately to the degree of renal function Further management depending on the above. I wish to thank Dr. Coburn for consulting me. It is a pleasure to be involved in Patient care with you. I will follow this patient along with you make for recommendations and is located Subjective Date of service: 09/16/20 Principal diagnosis: End-stage renal disease Interval history: Patient seen lying in bed. He wants to leave the hospital. Says he will be going to [facility] is not happy with care received Objective - Exam Narrative Exam: Middle-aged -[place] male lying in bed in no acute distress HEENT: NCAT, pink oral mucous membrane Neck: Supple, no venous distention CVS: S1S2 RRR with no murmur, rub or gallop Chest: Clear to auscultation but diminished in lower zones bilaterally Abdomen: Distended, tense ascites, soft, nontender, no organomegaly, bowel sounds are present Extremities: 1-2+ pitting edema genitourinary deferred Neuro: Awake, alert no focal deficits - Vital Signs Vital signs: Vital Signs - 12hr 09/16/20 09/16/20 09/16/20 00:16 00:30 00:46 Temperature Pulse Rate 77 80 82 Pulse Rate [ From Monitor] Respiratory 18 21 25 H Rate Blood Pressure 81/52 81/52 81/52 O2 Sat by Pulse 98 99 97 Oximetry 09/16/20 09/16/20 09/16/20 01:00 01:16 01:30 Temperature Pulse Rate 79 80 79 Pulse Rate [ From Monitor] Respiratory 23 19 17 Rate Blood Pressure 87/32 87/32 87/32 O2 Sat by Pulse 97 Oximetry 09/16/20 09/16/20 09/16/20 01:46 02:00 02:16 Temperature Pulse Rate 73 83 79 Pulse Rate [ From Monitor] Respiratory 13 15 13 Rate Blood Pressure 87/32 85/54 85/54 O2 Sat by Pulse Oximetry 09/16/20 09/16/20 09/16/20 02:30 02:46 03:00 Temperature Pulse Rate 75 87 81 Pulse Rate [ From Monitor] Respiratory 15 23 16 Rate Blood Pressure 85/54 85/54 75/51 O2 Sat by Pulse Oximetry 09/16/20 09/16/20 09/16/20 03:16 03:30 03:46 Temperature Pulse Rate 77 76 75 Pulse Rate [ From Monitor] Respiratory 11 L 16 12 Rate Blood Pressure 85/54 85/54 85/54 O2 Sat by Pulse Oximetry 09/16/20 09/16/20 09/16/20 04:00 04:16 04:30 Temperature 97.7 F Pulse Rate 88 77 79 Pulse Rate [ 80 From Monitor] Respiratory 15 17 20 Rate Blood Pressure 83/49 83/49 83/49 O2 Sat by Pulse 99 100 Oximetry 09/16/20 09/16/20 09/16/20 04:46 05:00 05:16 Temperature Pulse Rate 79 78 77 Pulse Rate [ From Monitor] Respiratory 16 24 13 Rate Blood Pressure 79/53 81/46 81/46 O2 Sat by Pulse 98 100 96 Oximetry 09/16/20 09/16/20 09/16/20 05:30 05:46 06:00 Temperature Pulse Rate 78 79 81 Pulse Rate [ From Monitor] Respiratory 17 19 23 Rate Blood Pressure 81/46 81/46 65/40 O2 Sat by Pulse 98 98 98 Oximetry 09/16/20 09/16/20 09/16/20 06:16 06:30 06:46 Temperature Pulse Rate 80 79 77 Pulse Rate [ From Monitor] Respiratory 20 16 18 Rate Blood Pressure 65/40 65/40 65/40 O2 Sat by Pulse 99 100 97 Oximetry 09/16/20 09/16/20 09/16/20 07:00 07:16 07:30 Temperature Pulse Rate 77 79 82 Pulse Rate [ From Monitor] Respiratory 16 19 24 Rate Blood Pressure 65/47 65/47 65/47 O2 Sat by Pulse 96 99 99 Oximetry 09/16/20 09/16/20 09/16/20 07:46 08:00 08:16 Temperature 98.2 F Pulse Rate 82 76 76 Pulse Rate [ From Monitor] Respiratory 17 19 16 Rate Blood Pressure 65/47 65/47 66/48 O2 Sat by Pulse 98 99 100 Oximetry 09/16/20 09/16/20 09/16/20 08:30 08:46 09:40 Temperature Pulse Rate 82 81 80 Pulse Rate [ From Monitor] Respiratory 17 12 Rate Blood Pressure 66/48 74/48 81/44 O2 Sat by Pulse 98 100 Oximetry - Lab 09/16/20 06:42 09/16/20 06:42 Most recent lab results Calcium 7.5 mg/dL (8.4-10.2) L 09/16/20 06:42 Magnesium 2.40 mg/dL (1.7-2.3) H 09/14/20 16:55 Medications & Allergies - Medications Allergies/Adverse Reactions: Allergies No Known Allergies Allergy (Verified 05/01/16 10:24) Home Medications: Home Medications Medication Instructions Recorded Confirmed Last Taken Type Cholecalciferol (Vitamin D3) 5,000 unit PO DAILY 09/14/20 09/14/20 Unknown History [Vitamin D3] Folic Acid [Folvite] 1 mg PO QDAY 09/14/20 09/14/20 Unknown History Furosemide [Lasix TAB] 40 mg PO QDAY 09/14/20 09/14/20 Unknown History Lactulose [Kristalose] 20 gm PO QDAY 09/14/20 09/14/20 Unknown History Midodrine [Proamatine] 5 mg PO TID 09/14/20 09/14/20 Unknown History Pantoprazole [Protonix] 40 mg PO QDAY 09/14/20 09/14/20 Unknown History Rifaximin [Xifaxan] 550 mg PO BID 09/14/20 09/14/20 Unknown History Spironolactone [Aldactone] 100 mg PO BID 09/14/20 09/14/20 Unknown History Thiamine [Vitamin B-1] 100 mg PO QDAY 09/14/20 09/14/20 Unknown History megestroL [Megace] 20 mg PO QID 09/14/20 09/14/20 Unknown History Nicotine Polacrilex [Nicotine Gum] 4 mg PO PRN PRN 09/15/20 09/15/20 09/15/20 History Nicotine [Habitrol] 21 mg TP QDAY 09/15/20 09/15/20 09/14/20 History Active Medications: Generic Name Dose Route Start Last Admin Trade Name Freq PRN Reason Stop Dose Admin Cholecalciferol 5,000 unit 09/15/20 10:00 09/16/20 09:40 Vitamin D3 PO 5,000 unit DAILY DAVID Administration Epoetin Caleb 10,000 unit 09/15/20 11:34 Procrit IV ANDREW PRN hemodialysis Folic Acid 1 mg 09/15/20 10:00 09/16/20 09:39 Folvite PO 1 mg QDAY DAVID Administration Furosemide 40 mg 09/15/20 10:00 09/16/20 09:39 Lasix PO 40 mg QDAY DAVID Administration Heparin Sodium (Porcine) 5,000 unit 09/15/20 11:34 Heparin IV ANDREW PRN hemodialysis Hydromorphone HCl 0.25 mg 09/14/20 20:30 09/15/20 04:15 Dilaudid IV 0.25 mg Q4H PRN Administration Pain, Moderate (4-6) Sodium Chloride 100 mls @ 999 mls/hr 09/15/20 11:34 Nacl 0.9% IV ANDREW PRN Hypotension Ceftriaxone Sodium 1 gm in 50 mls @ 100 mls/hr 09/16/20 13:00 Rocephin/Ns 1 Gm/50 Ml IV Q24HR [facility] Protocol Lactulose 20 gm 09/15/20 10:00 09/16/20 09:41 Cephulac PO Not Given QDAY DAVID Lidocaine 1 each 09/15/20 13:00 09/16/20 09:42 Lidoderm 5% TD 1 each QDAY DAVID Administration Megestrol Acetate 20 mg 09/15/20 10:00 09/16/20 09:40 Megestrol PO 20 mg QID DAVID Administration Midodrine 10 mg 09/15/20 14:00 09/16/20 09:39 Proamatine PO 10 mg TID DAVID Administration Nicotine 21 mg 09/15/20 13:00 09/16/20 09:39 Habitrol TD 21 mg QDAY DAVID Administration Pantoprazole Sodium 40 mg 09/16/20 07:30 09/16/20 09:39 Protonix PO 40 mg QDAC DAVID Administration Rifaximin 550 mg 09/14/20 22:00 09/16/20 09:41 Xifaxan PO 550 mg BID ADVID Administration Sodium Chloride 10 ml 09/14/20 22:00 09/16/20 09:43 Sodium Chloride Flush Syringe 10 Ml IV 10 ml BID DAVID Administration Sodium Chloride 10 ml 09/14/20 20:29 Sodium Chloride Flush Syringe 10 Ml IV PRN PRN LINE FLUSH Spironolactone 100 mg 09/14/20 22:00 09/16/20 09:40 Aldactone PO 100 mg BID DAVID Administration Thiamine HCl 100 mg 09/15/20 10:00 09/16/20 09:40 Vitamin B-1 PO 100 mg QDAY DAVID Administration
[2020-09-16 12:33] VITALS: BP 88/52
[2020-09-16] MEDS ORDERED: cefTRIAXone/NS 1 GM/50 ML 1 GM/50 ML BAG IV SCH (13:00)
--- NOTE | 2020-09-16 15:08 | Event Note ---
Date: 09/16/20 Attempted to see patient this PM. Awaiting US guided paracentesis as ordered. Patient had left AMA.
--- NOTE | 2020-09-16 17:56 | Discharge Summary ---
Providers - Providers Date of Admission: 09/14/20 20:29 Date of discharge: 09/16/20 Attending physician: ROSALES BARRETT 09/14/20 19:00 Consult to Physician [CONS] Urgent Comment: Consulting Provider: JHOANA ARITA Physician Instructions: Reason For Exam: ascities 09/14/20 19:30 Consult to Physician [CONS] Urgent Comment: Consulting Provider: CLARI SIDHU Physician Instructions: Reason For Exam: esrd on dialysis, sepsis 09/15/20 02:43 Consult to Dietitian/Nutrition [CONS] Routine Physician Instructions: Reason For Exam: Reason for Consult: Pt needs oral supplement 09/16/20 07:00 Consult to Physician [CONS] Routine Comment: called answ. serv. /savage Consulting Provider: SB SPIVEY Physician Instructions: Reason For Exam: Bacteremia Primary care physician: KATYA MALDONADO Hospitalization Condition: Stable Hospital course: 55 YO Male with Cirrhosis, ESRD on HD(T,R,Sa), ETOH Dependence, Nicotine Dep endence, HTN presents to ED for evaluation. Patient states that he has been "feeling sick" over the past 3 days. Patient knowledges generalized body aches, fatigue, subjective fever. Patient was seen and evaluated by his primary care physician on the day of presentation and he was found to be hypotensive. He was instructed to go to the ER for further evaluation. In the ER, patient was found to be hypotensive with lactic acidosis and elevated white counts. Patient was admitted on account of possible sepsis. Patient started on broad-spectrum antibiotics. 09/15. Complains of slight back pain. Blood pressure is borderline so we will limit dose of narcotics for now. Patient has distended abdomen and he mentions that he usually gets paracentesis and his last paracentesis was about a week ago. He had about 10 L of ascitic fluid removed at that time. GI has been consulted for further evaluation. Patient will need to have paracentesis but this will be done with caution as patient has borderline low blood pressure. I have increased patient's midodrine to 10 mg 3 times daily and have ordered Albumin 25 g x 2 doses to be preferably given after paracentesis. Patient will need to remain in the IMCU for now. Plan to continue IV antibiotics for possible infection. He may have underlying infection as he has elevated white count otherwise etiology of lactic acidosis could be from hypoperfusion from low blood pressure. Check procalcitonin and if negative, will discontinue IV antibiotics. 09/16. Patient seen and examined at bedside this morning. Blood pressure borderline. Suspect patient usually runs low. However patient noted to have gram-positive cocci in clusters in blood culture. Patient started on IV antibiotics. Procalcitonin is also elevated. Patient does not look septic. Has no signs of end organ damage. Plan to have paracentesis as per IR today. Patient will need albumin after paracentesis (ordered). Continue midodrine for now to reduce splanchnic vasodilation. We will continue to monitor vital signs closely. Called by RN the patient had left AMA despite explained to him earlier that he needed to stay for further evaluation. Disposition: [id number] LEFT AGAINST MED ADVICE - Discharge Diagnoses (1) Bacteremia Status: Acute (2) Hypotension Status: Acute (3) End stage renal disease Status: Acute (4) Sepsis Status: Acute (5) Abdominal ascites Status: Acute (6) Cirrhosis of liver with ascites Status: Acute Core Measure Documentation - Palliative Care Palliative Care/ Comfort Measures: Not Applicable - Core Measures Any of the following diagnoses?: none Exam - Physical Exam Narrative exam: VITAL SIGNS: Reviewed. GENERAL: Awake and alert on response to questions HEAD: No signs of head trauma. EYES: Pupils are equal. Extraocular motions intact. EARS: Hearing grossly intact. MOUTH: Oropharynx is normal. NECK: No adenopathy, no JVD. CHEST: Chest with diminished breath sounds bilaterally. No wheezes, rales, or rhonchi. CARDIAC: Regular rate and rhythm. S1 and S2, without murmurs, gallops, or rubs. VASCULAR: No cyanosis ABDOMEN: Distended and nontender MUSCULOSKELETAL: Good range of motion of all major joints. NEUROLOGIC EXAM: Alert and oriented x3. No focal neurologic deficits PSYCHIATRIC: Stable mood SKIN: No obvious lesions - Constitutional Vitals: Temp Pulse Resp BP Pulse Ox 98.2 F 84 18 88/52 100 09/16/20 08:00 09/16/20 12:00 09/16/20 12:00 09/16/20 12:00 09/16/20 12:00 Plan Follow up with: KATYA MALDONADO NP-C [Primary Care Provider] - 7 Days
[2020-09-16] MEDS ORDERED: CEFEPIME/NS 1 GM/100 ML 1 GM/100 ML BAG IV SCH (22:00)
== END 2020-09-16 14:05 | disposition left against medical advice (07) | DRG 871 ==
LOC: ED 15:21 → IMCU 20:29
PROVIDERS: ADMIT Internal Medicine; ATTEND Internal Medicine
PROC: 5A1D70Z Performance of Urinary Filtration, Intermittent, Less than 6 Hours Per Day (ICD-10-PCS; principal; 2020-09-15)
DX: A41.81 Sepsis due to Enterococcus (principal); N18.6 End stage renal disease; E87.2 Acidosis; K70.31 Alcoholic cirrhosis of liver with ascites; I12.0 Hypertensive chronic kidney disease with stage 5 chronic kidney disease or end stage renal disease; Z99.2 Dependence on renal dialysis; E87.1 Hypo-osmolality and hyponatremia; F17.213 Nicotine dependence, cigarettes, with withdrawal; F10.20 Alcohol dependence, uncomplicated; Y90.9 Presence of alcohol in blood, level not specified; E87.5 Hyperkalemia; I95.9 Hypotension, unspecified; D64.9 Anemia, unspecified; D69.6 Thrombocytopenia, unspecified; D72.829 Elevated white blood cell count, unspecified
CPT/HCPCS: 36415; 71045; 80053; 80074; 80320; 82140; 83735; 84145; 85007; 85025; 85610; 85730; 87040; 87076; 87116; 87186; 90686; 90732; 93005; 96365; 96375; G0378; G0480; J0692; J1170; J1885; J2543; J3370; J7030; J7040; J7050; P9045; P9047

== ENCOUNTER 2020-09-16 17:24 | Emergency (ER) | payer MEDICAID ==
--- NOTE | 2020-09-16 17:32 | Event Note ---
ED Screening Note Date of service: 09/16/20 Time: 17:31 ED Screening Note: Patient discharged from hospital today and sent back by his physician for paracentesis This initial assessment/diagnostic orders/clinical plan/treatment(s) is/are subject to change based on patients health status, clinical progression and re- assessment by fellow clinical providers in the ED. Further treatment and workup at subsequent clinical providers discretion. Patient/guardian urged not to elope from the ED as their condition may be serious if not clinically assessed and managed. Initial orders include: Main ED
[2020-09-16 17:35] VITALS: BP 83/50
== END 2020-09-16 18:48 | disposition left against medical advice (07) ==
LOC: ED 17:24
DX: R10.9 Unspecified abdominal pain (principal); Z53.21 Procedure and treatment not carried out due to patient leaving prior to being seen by health care provider